=== PATIENT | female | born 1985 | race Caucasian/White ===

== ENCOUNTER → 2017-02-18 | Outpatient (CLI) | payer OTHER ==
[~2017-02-18] MED LIST: ETONMIS VAGRING; IBUP1CAP9 PO; MULT-506 PO; PERCOCET PO
== END | disposition home or self-care (01) ==
LOC: C.PAPS 15:28
PROVIDERS: ATTEND Obstetrics & Gynecology
DX: Z12.4 Encounter for screening for malignant neoplasm of cervix (principal)

== ENCOUNTER 2017-06-01 15:31 | Emergency (ER) | payer OTHER ==
[~2017-06-01] VITALS: Ht 165.1 cm; Wt 63.1 kg
[2017-06-01 15:41] VITALS: Ht 165.1 cm; Wt 63.1 kg
--- NOTE | 2017-06-01 16:50 | DIAGNOSTIC IMAGING REPORT ---
CHEST 2 VIEWS ROUTINE CLINICAL HISTORY: cough, L sided chest pain COMPARISON STUDY: Chest radiograph December 21, 2005. FINDINGS: Lung volumes are normal. No pneumothorax or pleural effusion is present. There is hazy left lower lung opacity, lateral to the left heart border. Pulmonary vascularity is normal. A round radiodensity projecting over the left lower lung is noted within adjacent linear density. IMPRESSION: Mild hazy left lower lung opacity which favors an area of pneumonia. Radiographic follow to ensure resolution is recommended. Electronically signed by: Jamal Duvall M.D. 06/01/2017 4:49 PM Dictated Date/Time: 06/01/2017 4:44 PM
[2017-06-01] MEDS ORDERED: ALBUTEROL HFA 8 GM INHALER INH STA (17:05)
[2017-06-01] MEDS ORDERED: DOXY100C PO (17:13)
[2017-06-01 17:27] VITALS: BP 108/72; PULSE 68; TEMP 37.4; O2SAT 100
--- NOTE | 2017-06-01 17:28 | EMERGENCY ROOM VISIT NOTE ---
History First contact with patient: 15:48 Chief Complaint: COUGH Stated Complaint: CHEST PAIN W/SHORTNESS OF BREATH Nursing Triage Summary: cough for the past week or so. mother of 3 children that tested positive for influenza A yesterday. productive cough green sputum. History of Present Illness The patient is a 31 year old female who presents to the Emergency Room with complaints of shortness of breath, cough and left-sided chest discomfort with deep breathing. The patient reports that she had a bronchitis back in March that was treated with a Z-Los. The patient did have almost complete resolution of her symptoms. The patient reports that she started to develop a cough last week, with mildly worsening symptoms over the weekend. She used a Vicks inhaler on Tuesday, then noticed that the reservoir had mold in it. She reports left-sided chest discomfort that is worse when laying on the left side. She has not had any fevers or chills. She reports that her 3 children also developed a cough on Tuesday, and tested positive for influenza A yesterday. The patient denies any significant cardiopulmonary history. She rates her discomfort a 3 out of 10. Review of Systems 10 system review was performed and was negative except for pertinent positives and negatives as indicated in history of present illness Past Medical/Surgical History Medical Problems: (1) History of - section Family History Cancer Diabetes mellitus Gallbladder disease Heart disease Hypertension Lung disease Social History Smoking Status: Never Smoker Drug Use: none Marital Status: Occupation Status: employed Current/Historical Medications Scheduled Doxycycline Hyclate (Vibramycin), 100 MG PO BID Etonogestrel/Ethinyl Estradiol (Nuvaring), 1 EA VAGRING MONTHLY Multivitamin (Multivitamin), 1 TAB PO QAM Scheduled PRN Ibuprofen (Ibuprofen), 1-3 TABS PO DAILY PRN for Pain Physical Exam Vital Signs Date Time Temp Pulse Resp B/P (MAP) Pulse Ox O2 Delivery O2 Flow Rate FiO2 06/01/17 15:46 100 Room Air 06/01/17 15:41 37.4 70 18 104/66 96 Room Air Physical Exam CONSTITUTIONAL: Healthy and well nourished. Alert and oriented X 3 with positive affect. Patient does not appear acutely or toxic. She also had no cough while in the emergency department. HEENT: Normocephalic, atraumatic. Pupils equal, round and reactive. Ears and nares are clear. No sclerae icterus or conjunctival injection/pallor. OROPHARYNX: No posterior pharyngeal erythema or tonsillar hypertrophy. NECK: Full active range of motion without discomfort. RESPIRATORY: Clear to auscultation bilaterally with no wheezing, crackles, rhonchi or stridor. CARDIOVASCULAR: Regular rate and rhythm with no murmurs, rubs or gallops. GASTROINTESTINAL: Bowel sounds present in all quadrants. Soft and nontender to palpation. MUSCULOSKELETAL: Full range of motion of all joints without discomfort. INTEGUMENTARY: No rash or other significant dermatologic conditions noted. NEUROLOGIC: No focal neurologic deficits noted. Medical Decision & Procedures ER Provider Diagnostic Interpretation: My interpretation of a two-view chest x-ray shows a left basilar consolidation consistent with pneumonia. Radiologist report is as follows: CHEST 2 VIEWS ROUTINE CLINICAL HISTORY: cough, L sided chest pain COMPARISON STUDY: Chest radiograph December 21, 2005. FINDINGS: Lung volumes are normal. No pneumothorax or pleural effusion is present. There is hazy left lower lung opacity, lateral to the left heart border. Pulmonary vascularity is normal. A round radiodensity projecting over the left lower lung is noted within adjacent linear density. IMPRESSION: Mild hazy left lower lung opacity which favors an area of pneumonia. Radiographic follow to ensure resolution is recommended. ED Course Patient history and physical exam were performed. Nurse's notes were reviewed. Vital signs were reviewed and were normal. O2 saturation is 96% on room air. The patient is also afebrile, and has not taken any ibuprofen or Tylenol today. She is also not tachycardic. Chest x-ray shows a left basilar consolidation consistent with pneumonia. Based on patient history and timing, I suspect that this is a bacterial pneumonia as opposed to influenza the patient was provided a prescription for doxycycline, and dispensed a Ventolin metered-dose inhaler and AeroChamber. She was encouraged to alternate ibuprofen and Tylenol as needed for the pain. She was encouraged to follow-up with her PCP in 7-10 days for recheck and repeat chest x-ray. Return to the emergency department for any progressively worsening symptoms. The patient was encouraged to exercise respiratory precautions given that her children currently have influenza. 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 The patient was happy with plan of care, voiced understanding of all discharge instructions, and denied any significant discomfort at the time of discharge. Medical Decision Medication Reconcilliation Current Medication List: was personally reviewed by me Blood Pressure Screening Patient's blood pressure: Normal blood pressure Impression Primary Impression: Left lower lobe pneumonia Departure Information Dispostion Home / Self-Care Prescriptions Doxycycline Hyclate (VIBRAMYCIN) 100 Mg Cap 100 MG PO BID for 10 Days, #20 CAP Prov: Hill Mccall PA 06/01/17 Referrals Harsh Agarwal D.O. Forms HOME CARE DOCUMENTATION FORM, IMPORTANT VISIT INFORMATION Patient Instructions Pneumonia (Bacterial) - [facility], [facility] Additional Instructions Complete all doxycycline antibiotics as prescribed. Albuterol 2 puffs every 4 hours as needed for cough. You may also use other OTC medicines for additional relief (Robitussin, Mucinex) . Ibuprofen 800 mg and/or Tylenol 1000 mg every 8 hours. You may also alternate these medications for more effective pain relief: Ibuprofen --4 HRS--> Tylenol --4 HRS--> ibuprofen --4 HRS--> Tylenol .... Follow-up with your PCP for recheck in 7-10 days, and repeat chest x-ray. Return to the emergency department for any significant worsening symptoms. Problem Qualifiers Primary Impression: Left lower lobe pneumonia Pneumonia type: due to unspecified organism Qualified Codes: J18.1 - Lobar pneumonia, unspecified organism
== END 2017-06-01 17:29 | disposition home or self-care (01) ==
LOC: C.EDB 15:32 → C.EDD 17:29
DX: J18.9 Pneumonia, unspecified organism (principal); Z79.899 Other long term (current) drug therapy; Z80.9 Family history of malignant neoplasm, unspecified; Z83.3 Family history of diabetes mellitus; Z83.79 Family history of other diseases of the digestive system; Z82.49 Family history of ischemic heart disease and other diseases of the circulatory system

== ENCOUNTER → 2017-06-15 | Outpatient (CLI) | payer OTHER ==
[~2017-06-15] MED LIST changes: -PERCOCET PO
--- NOTE | 2017-06-15 15:44 | DIAGNOSTIC IMAGING REPORT ---
CHEST 2 VIEWS ROUTINE CLINICAL HISTORY: Follow-up pneumonia. COMPARISON STUDY: Chest radiograph June 01, 2017. FINDINGS: Lung volumes are normal. No pneumothorax or pleural effusion is noted. Hazy left lower lung opacity shown on exam of June 01, 2017 has resolved. Lungs are clear. Cardiac size is normal. Mediastinal contours are normal. There is no evidence for pulmonary edema. IMPRESSION: Interval resolution of left lower lung pneumonia shown on exam of June 01, 2017. Electronically signed by: Jamal Duvall M.D. 06/15/2017 3:42 PM Dictated Date/Time: 06/15/2017 3:41 PM
== END | disposition home or self-care (01) ==
LOC: C.RAD 15:23
PROVIDERS: ATTEND Nurse Practitioner
DX: J18.9 Pneumonia, unspecified organism (principal)

== ENCOUNTER 2018-11-27 07:28 | Observation (INO) ==
--- NOTE | 2018-11-03 09:01 | Anesthesiology Consultation ---
Date of Service November 03, 2018 Assessment & Plan (1) Encounter for pre-operative examination: Check test AM DOS Chart Review Chart Review: Acceptable Risk for Surgery and Patient NOT seen in Pre Admission Testing History Surgery Operation Date: 11/27/18 07:00 Proposed Procedures p Laparoscopic Cholecystectomy, Possible Cholangiogram - Ke Zhong MD, FACS Height/Weight Height: 5 ft 5 in Weight: 58.967 kg Allergies Allergy/AdvReac Type Severity Reaction Status Date / Time No Known Allergies Allergy Verified 11/02/18 15:37 Medications Home Medications Medication Instructions Recorded Confirmed Last Taken ibuprofen 200 - 600 mg PO UD PRN 03/04/18 11/02/18 Unknown melatonin 5 mg PO HS PRN 11/02/18 11/02/18 Unknown multivitamin 1 tab PO QAM 11/02/18 11/02/18 Unknown Past Medical History Medical History Strep pharyngitis ?2014 GERD (gastroesophageal reflux disease) Migraine VISUAL Past Family History Family History Grandmother (Paternal) Family history of diabetes mellitus Other No pertinent family history Past Surgical History Surgical History History of section X 3 History of laparoscopy FOR ENDOMETRIOSIS History of tooth extraction WISDOM TEETH Nausea and vomiting after administration of anesthetic agent Social History Smoking Status: Former smoker Do You Dip or Chew Tobacco: No Smoking End Date: QUIT 20'S Hx Alcohol Use: Yes (RARELY) Alcohol type: wine alcohol intake frequency: other Hx Substance Use: No substance use type: does not use
[~2018-11-27 07:28] MED LIST changes: +DEXAMETHASONE SOD INJ 4 MG/ML VIAL ONE; -ETONMIS VAGRING; -IBUP1CAP9 PO; +LIDOCAINE HCL 2% 2 ML VIAL/AMP(20MG/ML) INFIL ONE; +LR 15ML/HR IV SCH; +MIDAZOLAM HCL 1 MG/ML 2ML VIAL ONE; -MULT-506 PO; +ONDANSETRON INJ 2 MG/ML 2 ML VIAL ONE; +PROPOFOL IV EMULSION 10 MG/ML 20 ML VIAL IV ONE; +ROCURONIUM BROMIDE 10 MG/ML 5 ML VIAL ONE; +cefUROXime 1,500 MG in DEXTROSE 5% 100 ML IV SCH; +fentaNYL citrate 100 MCG/2 ML VIAL ONE
[2018-11-27] MEDS ORDERED: PHENYLEPHRINE 100MCG/ML 5ML SYR IV PRN (07:29)
[2018-11-27] MEDS ORDERED: MEPERIDINE HCL 25 MG/ML CARP IV PRN (07:29)
[2018-11-27] MEDS ORDERED: ONDANSETRON INJ 2 MG/ML 2 ML VIAL IV PRN (07:29)
[2018-11-27] MEDS ORDERED: ATROPINE SULFATE 0.1 MG/ML 10ML SYR IV PRN (07:29)
[2018-11-27] MEDS ORDERED: ePHEDrine sulfate 50 MG/ML AMP IV PRN (07:29)
[2018-11-27] MEDS ORDERED: LABETALOL HCL IV 5 MG/ML 20ML IV PRN (07:29)
[2018-11-27] MEDS ORDERED: SCOPOLAMINE 1.5 MG TDSY ONE (08:01)
[2018-11-27] MEDS ORDERED: SCOPOLAMINE 1.5 MG TDSY TD ONE (08:05)
[2018-11-27] MEDS ORDERED: CONRAY 60% 50 ML VIAL ONE (08:11)
[2018-11-27] MEDS ORDERED: BUPIVACAINE 0.5 % 5 MG/1 ML MPF 30ML VIAL ONE (08:11)
[2018-11-27] MEDS ORDERED: ACETAMINOPHEN 1000 MG/100 ML IV IV ONE (08:16)
--- NOTE | 2018-11-27 09:17 | Fluoroscopy Report ---
[place] cholangiogram OR CLINICAL HISTORY: 33 years-old Female presenting with POSSIBLE CHOLANGIOGRAM. TECHNIQUE: Fluoroscopy was provided for an intraoperative cholangiogram. 5 fluoroscopic image(s) cleso rded. COMPARISON: HIDA scan from 04/17/2018. FINDINGS: Procedure: An intraoperative cholangiogram was performed. Cholecystectomy clips noted. A catheter was introduced into the cystic duct remnant. The cystic duct remnant was nondilated. Reflux of contrast into the pancreatic duct noted. Peritoneal spillage: Peritoneal spillage of contrast consistent with a leak, likely at the cystic jaret t injection site. Extrahepatic bile ducts: The common bile duct is normal in course and caliber. There are no filling d efects seen within the common bile duct to suggest a retained stone. Contrast extends into the small bowel. Intrahepatic bile ducts: There is no intrahepatic bile duct dilatation. Fluoroscopy dosage (mGy): 1.97. Fluoroscopy time: 19.2 seconds. Number or time of high level fluoroscopy (HLF), digital spot, or digital subtraction images: 0. IMPRESSION: The patient is status post cholecystectomy. No filling defects within the bile ducts. Electronically signed by: Mckay Banuelos M.D. 11/27/2018 9:16 AM
[2018-11-27] MEDS ORDERED: ACETAMINOPHEN 1,000 MG/100 ML VIAL IV STA (09:19)
--- NOTE | 2018-11-27 09:19 | Operative Report ---
Post Operative Report Pre & Post Diagnosis Operation Date: 11/27/18 08:30 Pre-Op Diagnosis: Biliary Colic Post-Op Diagnosis: Biliary Colic, chronic cholecystitis Procedure Operation Date: 11/27/18 08:30 Actual Procedures p Laparoscopic Cholecystectomy with Cholangiogram - Ke Zhong MD, FACS Surgeon Ke Zhong MD, FACS Customer Facilities Supervisor Caryn Espino Estimated Blood Loss 5 Findings Consistent with Post-Op Diagnosis Specimens gallbladder Description of Procedure see dictation cholangiogram- narrow CBD I attest to the content of the Intraoperative Record and any orders documented therein. Any exceptions are noted below.
[2018-11-27] MEDS ORDERED: NEOSTIGMINE METHYLSULFATE 5 MG/5 ML SYR ONE (09:34)
[2018-11-27] MEDS ORDERED: KETOROLAC 30 MG/ML VIAL ONE (09:34)
[2018-11-27] MEDS ORDERED: GLYCOPYRROLATE 0.2 MG/ML VIAL ONE (09:34)
[2018-11-27] MEDS: fentaNYL citrate 100 MCG/2 ML VIAL IV PRN ×4 (09:48→10:03)
[2018-11-27] MEDS: HYDROmorphone INJ 1 MG/ML SYRINGE IV PRN ×6 (10:06→10:31)
[2018-11-27] MEDS ORDERED: PROMETHAZINE HCL 25 MG in SODIUM CHLORIDE 0.9% 50 ML IV STA (10:13)
--- NOTE | 2018-11-27 10:49 | Anesthesiology Progress Note ---
Date of Service November 27, 2018 Anesthesia Post Procedure Vital Signs Vital Signs: Temp Pulse Pulse Resp BP Pulse Ox 11/27/18 10:35 71 16 108/79 100 11/27/18 10:25 64 15 103/68 100 11/27/18 10:15 61 16 102/69 100 11/27/18 10:05 60 16 108/71 100 11/27/18 09:55 66 16 108/72 99 11/27/18 09:45 85 16 110/73 100 11/27/18 09:37 36.4 C L 71 16 104/79 100 11/27/18 08:01 36.7 C 68 16 103/78 100 Pain Intensity Abdomen: Pain Intensity: 1 Transfer of Care Handoff Completed per policy Notes Mental Status: alert / awake / arousable Patient Amnestic to Procedure: Yes Nausea / Vomiting: adequately controlled Pain: adequately controlled Airway Patency, RR, SpO2: stable & adequate BP & HR: stable & adequate Hydration State: stable & adequate Anesthetic Complications: no major complications apparent and Pt Satisfied with anesthetic care Notes: The patient's PONV was treated with preop scopolamine patch, intraoperative Decadron and Zofran, and postoperative Phenergan.
[2018-11-27] MEDS ORDERED: ACETAMINOPHEN 325 MG TAB PO PRN (11:15)
[2018-11-27] MEDS ORDERED: HYDROCODONE/ACETAMOPHEN 5/325MG TAB PO PRN (11:15)
[2018-11-27] MEDS ORDERED: IBUPROFEN 600 MG TAB PO PRN (11:15)
[2018-11-27] MEDS ORDERED: PROMETHAZINE HCL 12.5 MG in SODIUM CHLORIDE 0.9% 50 ML IV PRN (11:15)
[2018-11-27] MEDS ORDERED: PROMETHAZINE HCL 25 MG in SODIUM CHLORIDE 0.9% 50 ML IV PRN (11:15)
[2018-11-27] MEDS ORDERED: HYDROmorphone INJ 1 MG/ML SYRINGE IV PRN (11:15)
[2018-11-27] MEDS ORDERED: HYDROmorphone INJ 0.5 MG/0.5 ML SYR IV PRN (11:15)
--- NOTE | 2018-11-27 13:02 | Operative Report ---
DATE OF OPERATION: 11/27/2018 NAME OF OPERATION: Laparoscopic cholecystectomy with intraoperative cholangiogram. PREOPERATIVE DIAGNOSIS: Biliary colic. POSTOPERATIVE DIAGNOSIS: Biliary colic with chronic cholecystitis. STAFF SURGEON: Ke Zhong MD CYBER ANALYST: Ryland Espino PA-C ANESTHESIA: General. DESCRIPTION OF PROCEDURE: The patient was brought in the operating room and placed on the operating table in supine position. Her abdomen was prepped and draped in usual fashion. Pneumatic stockings, orogastric tube were placed. Skin and subcutaneous tissue were anesthetized at all incisions using 0.5% plain Marcaine. Incision was made just above the umbilicus, carrying dissection down identifying the fascia, placing a Veress needle producing pneumoperitoneum. Under visualization after an 11 mm port placed, three 5 mm ports were placed, 1 cephalad and 2 laterally. Gallbladder was grasped and retracted. It was distended. Dissection was carried out at the deandre hepatis. There was some scar tissue indicating chronic inflammation. Cystic duct was identified, it was very small and sclerotic. It was clipped and then cholangiogram performed showing a very narrow common bile duct, but patent with good flow into the duodenum. The cystic duct was clipped and transected. The cystic artery identified, clipped and transected and the gallbladder dissected away from the liver bed in the usual fashion. There was scar tissue in the posterior wall. Gallbladder was placed in an Endobag. After appropriate hemostasis and irrigation, the Endobag was removed from the umbilical site. The umbilical fascia closed using 0 Vicryl suture. Skin reapproximated using subcuticular 4-0 Monocryl with Dermabond. The patient was transferred to recovery room in stable condition. My apartment assistant manager helped with prepping, draping, removal of the gallbladder and closure of the wounds. I attest to the content of the Intraoperative Record and any orders documented therein. Any exception s are noted below.
[2018-11-27] MEDS: LACTATED RINGER'S 1,000 ML IV SCH ×2 (14:04→23:15)
[2018-11-27] MEDS: ONDANSETRON INJ 2 MG/ML 2 ML VIAL IV PRN ×2 (14:05→17:41)
[2018-11-27] MEDS: CHECK SCOPOLAMINE PATCH PLACEMENT SCH (15:23)
[2018-11-27] MEDS: HYDROCODONE/ACETAMOPHEN 5/325MG TAB PO PRN (17:45)
[2018-11-28] MEDS: CHECK SCOPOLAMINE PATCH PLACEMENT SCH (00:43)
--- NOTE | 2018-11-28 07:56 | Anesthesiology Progress Note ---
Date of Service November 28, 2018 Anesthesia Post Procedure Vital Signs Vital Signs: Temp Pulse Pulse Resp BP BP Pulse Ox 11/28/18 06:51 36.7 C 70 67 12 110/70 101/61 98 11/28/18 03:06 36.7 C 67 12 101/61 98 11/27/18 23:33 36.7 C 84 14 109/70 98 11/27/18 18:54 36.8 C 81 16 111/68 99 11/27/18 16:43 36.8 C 84 14 103/65 98 11/27/18 14:20 36.9 C 102 H 14 110/70 99 11/27/18 13:38 36.4 C L 102 H 14 104/65 99 11/27/18 12:18 36.7 C 102 H 12 101/67 98 11/27/18 11:25 36.5 C 83 16 105/67 100 11/27/18 11:00 36.5 C 78 16 100/63 99 11/27/18 10:45 36.4 C L 70 14 99/56 L 95 11/27/18 10:35 71 16 108/79 100 11/27/18 10:25 64 15 103/68 100 11/27/18 10:15 61 16 102/69 100 11/27/18 10:05 60 16 108/71 100 11/27/18 09:55 66 16 108/72 99 11/27/18 09:45 85 16 110/73 100 11/27/18 09:37 36.4 C L 71 16 104/79 100 11/27/18 08:01 36.7 C 68 16 103/78 100 Pain Intensity Abdomen: Pain Intensity: 1 Notes Mental Status: alert / awake / arousable and participated in evaluation Patient Amnestic to Procedure: Yes Pain: adequately controlled Airway Patency, RR, SpO2: stable & adequate BP & HR: stable & adequate Hydration State: stable & adequate Anesthetic Complications: no major complications apparent and Pt Satisfied with anesthetic care Notes: pt had nausea that required doses of Zofran and Phenergan, after a scopolamine patch and intra-op antiemetics. N&V resolving only this am
[2018-11-28 08:10] VITALS: BP 97/58; PULSE 59; TEMP 98.4; O2SAT 99
[2018-11-28] MEDS: HYDROCODONE/ACETAMOPHEN 5/325MG TAB PO PRN ×2 (09:24→14:43)
--- NOTE | 2018-11-28 11:08 | Discharge Summary ---
PRINCIPAL DIAGNOSIS: Chronic cholecystitis. PROCEDURES: The patient underwent laparoscopic cholecystectomy with cholangiogram. HISTORY OF PRESENT ILLNESS: The patient is a 33-year-old female who has been having intermittent abdominal pain felt to be biliary colic. Brought into the hospital on 11/27/2018 where she underwent laparoscopic cholecystectomy with intraoperative cholangiogram. The cholangiogram was essentially normal. She did have a very narrow common bile duct and a very small sclerotic cystic duct with some scar tissue consistent with chronic cholecystitis. She has done relatively well and does want to go home. She looks good this morning. We will see her in the surgical clinic within 1-2 weeks.
[2018-11-28] MEDS: ONDANSETRON INJ 2 MG/ML 2 ML VIAL IV PRN (14:44)
== END 2018-11-28 15:25 | disposition home or self-care (01) ==
LOC: 3W 07:28 → ASU 07:28

== ENCOUNTER 2021-01-16 05:43 | Inpatient (IN) ==
--- NOTE | 2021-01-08 11:28 | History and Physical Report ---
CHIEF COMPLAINT: Intrauterine , repeat section. HISTORY OF PRESENT ILLNESS: The patient is a 35-year-old 4, para 3. She has had three previ ous sections. This is well dated with a first trimester ultrasound. Her due date is 01/23/2021. She has had no problems. She is presently being scheduled for repeat evette ollie section. Her history is as follows, her first delivery was in 2008, it was a boy, 7 atif nds 8 ounces, premature rupture of membranes, failed induction of labor, it was complicated by anemia and she had to have transfusions. At one point, her hemoglobin was down to 5. Second de livery was in 2010, another boy, 7 pounds, 10 ounces, 39 weeks' gestation, repeat section. Third delivery was in 2013, boy, 7 pounds 14 ounces, 38 and 1/2 weeks' gestation, repeat sec tion, and the patient went into labor. Presently, the patient is being scheduled for repeat low segm ent section. She has 3 boys in good health. ALLERGIES: She has no known drug allergies. PAST SURGICAL HISTORY: She has had three C-sections. She says a diagnostic laparoscopic evaluation, which showed endometriosis. She had wisdom teeth removed. She had gallbladder taken out. PAST MEDICAL HISTORY: No history of rheumatic fever, heart disease, heart murmur, diabetes, tubercul osis. REVIEW OF SYSTEMS: No symptoms of frequent ear infections or significant medical problems. PHYSICAL EXAMINATION: GENERAL: Well-developed, well-nourished, 35-year-old white female, alert, oriented x 3, and cooperat talia, in no acute distress, appeared her stated age. HEENT: Eyes, conjunctivae are pink. Sclerae white, no evidence of jaundice. Ears had normal light reflex bilaterally. Nose had normal mucosa. Septum is midline. There were no polyps. Throat had n o erythema or evidence of infection. Teeth are in good state of repair. Head was normocephalic, nor mal distribution of hair. NECK: Supple. Trachea midline. Thyroid is not enlarged. There is no adenopathy appreciated. Both carotids are of good intensity. CHEST: Clear to auscultation and percussion. No wheezes, rales, or rhonchi appreciated. CARDIAC: Heart had a regular rhythm. S1 and S2 are normal. BREAST: Exam was normal. ABDOMEN: Revealed a term-sized fetus. There was a well-healed Pfannenstiel scar tattoo, left lower quadrant. PELVIC: Exam revealed vertex presentation, about a 0 station. Cervix was posterior and closed. MUSCULOSKELETAL: Examination revealed no calf tenderness. IMPRESSION OF THIS CASE: Three previous sections, intrauterine at term. PLAN: For repeat section, status post diagnostic laparoscopy revealing endometriosis, statu s post cholecystectomy, status post wisdom teeth removal. Job ID: [id number]
--- NOTE | 2021-01-08 12:36 | PAT Medication Instructions ---
Medication Instructions Date of Service January 08, 2021 Home Medications vits no.130-ferrous fum 27 mg iron-folic acid 800 mcg tablet ( Vitamin) 1 tab PO DAILY calcium carbonate 500 mg calcium (1,250 mg) chewable tablet 2,500 mg PO BID PRN DO NOT take the morning of surgery vits no.130-ferrous fum 27 mg iron-folic acid 800 mcg tablet ( Vitamin) 1 tab PO DAILY calcium carbonate 500 mg calcium (1,250 mg) chewable tablet 2,500 mg PO BID PRN Other Notes If you have any questions please call us at [phone] or [phone] or [phone] or [phone]
--- NOTE | 2021-01-12 09:22 | Anesthesiology Consultation ---
Date of Service January 12, 2021 Assessment & Plan (1) Encounter for pre-operative examination: - Patient was scheduled for PAT visit 01/12/21 but missed appt due to significant headache at time of visit. Due to work schedule, unable to schedule in person PAT visit at this time, therefore I called patient 01/12 to discuss PMHX/PSHX and anesthesia questions via phone. Patient reports good pain control with prior c- sections (done via spinals and epidurals) but did report that toward the end of previous c/s, she felt chest heaviness. She also reports that she has thrown up when being laid back at the initiation of prior surgeries as well as PONV. - COVID screening: Per assessment on 01/12: Travel screen negative, no known COVID-19 positive contacts or current COVID-19 related symptoms. Surgeon arranging preop COVID testing (either 01/13 or 01/14 at [facility]). Awaiting results. Chart Review Chart Review: Acceptable Risk for Surgery (pending preop labs) and Patient NOT seen in Pre Admission Testing History Surgery Operation Date: 01/16/21 07:30 Proposed Procedures p Section in LD - Jl Berger MD Height/Weight Height: 5 ft 5 in Weight: 81.647 kg Allergies Allergy/AdvReac Type Severity Reaction Status Date / Time No Known Allergies Allergy Verified 01/05/21 09:41 Medications Home Medications Medication Instructions Recorded Confirmed Last Taken vits no.130-ferrous fum 1 tab PO DAILY 01/03/21 01/05/21 01/02/21 27 mg iron-folic acid 800 mcg tablet ( Vitamin) calcium carbonate 500 mg calcium 2,500 mg PO BID PRN 01/05/21 01/05/21 Unknown (1,250 mg) chewable tablet Past Medical History Medical History GERD (gastroesophageal reflux disease) Migraine Ocular Exercise / Class Metabolic Activity III < 4 Walking/Shop/Light housework (one FS (no CP, + SOB)) Past Family History Family History Grandmother (Paternal) Family history of diabetes mellitus Grandmother (Maternal) Myocardial infarction Pancreatic cancer Other No pertinent family history Denies family history of Colon cancer Ovarian cancer Prostate cancer Breast cancer Past Surgical History Surgical History History of section x3 History of cholecystectomy Laparoscopic cholecystectomy (11/27/18): Grade view 1, MAC#3, ETT 7.0 at [facility] (scope patch used) History of laparoscopy r/t endometriosis History of tooth extraction WTE Past Anesthesia History No Hx of Anesthesia Complications (except PONV) and No Family Hx of Anesthesia Complications History of PONV History of PONV (scope patch used with 11/2018 tiana) Social History Smoking Status: Never smoker Do You Dip or Chew Tobacco: No Hx Alcohol Use: No (RARELY) Alcohol type: wine alcohol intake frequency: other Hx Substance Use: No substance use type: does not use Review of Systems Patient denies chest pain, shortness of breath, fever, chills, cough, wheezing, palpitations.
[2021-01-16] MEDS ORDERED: CITRIC ACID/SODIUM CITRATE 15 ML UDC PO SCH (06:00)
[2021-01-16] MEDS ORDERED: cefOXitin 2,000 MG in DEXTROSE 5% 50 ML IV SCH (06:00)
[2021-01-16] MEDS ORDERED: LACTATED RINGER'S 1,000 ML IV SCH ×2 (06:00→09:45)
[2021-01-16 06:25] LABS: INR 0.9 (0.9-1.1); Partial Thromboplastin Time 25.3 Seconds (21.0-31.0); Prothrombin Time 9.5 Seconds (9.0-12.0)
[2021-01-16 06:47] LABS: Calcium 9.2 mg/dl (8.5-10.1); Creatinine Clr Calc Pharmacy 132.6 ml/min; Est GFR (African American) 136.6 ml/min; Est GFR (Non-African American) 117.9 ml/min; Potassium 3.6 mmol/L (3.5-5.1)
[2021-01-16] MEDS ORDERED: fentaNYL citrate 100 MCG/2 ML VIAL ONE (06:52)
[2021-01-16] MEDS ORDERED: MoRPHine SULFATE PF 1 MG/ML 10 ML AMP/VIAL ONE (06:52)
[2021-01-16] MEDS ORDERED: LIDOCAINE/EPINEPHRINE 1% 20 ML VIAL ONE (06:56)
[2021-01-16 07:50] LABS: Basophils # (auto) 0.02 K/uL (0-0.2); Basophils % (auto) 0.2 %; Eosinophils # (auto) 0.09 K/uL (0-0.5); Eosinophils % (auto) 1.1 %; Hematocrit (blood only) 37.1 % (37-47); Hemoglobin 12.5 g/dL (12.0-16.0); Immature Granulocytes # (auto) 0.15 K/uL (0.00-0.02); Immature Granulocytes % (auto) 1.8 %; Lymphocytes # (auto) 2.02 K/uL (1.2-3.4); Lymphocytes % (auto) 23.8 %; Mean Corpuscular Hemoglobin 30.8 pg (25-34); Mean Corpuscular Volume 91.4 fL (80-100); Mean Platelet Volume 11.9 fL (7.4-10.4); Monocytes # (auto) 0.73 K/uL (0.11-0.59); Monocytes % (auto) 8.6 %; Neutrophils # (auto) 5.48 K/uL (1.4-6.5); Neutrophils % (auto) 64.5 %; Platelet Count 196 K/uL (130-400); RDW Coefficient of Variation 14.4 % (11.5-14.5); RDW Standard Deviation 47.3 fL (36.4-46.3); Red Blood Count 4.06 M/uL (4.2-5.4); White Blood Count 8.49 K/uL (4.8-10.8)
[2021-01-16 07:51] LABS: Mean Corpuscular Hgb Conc 33.7 g/dL (32-36)
[2021-01-16] MEDS ORDERED: ePHEDrine sulfate 50 MG/ML AMP IV PRN (08:03)
[2021-01-16] MEDS ORDERED: OXYTOCIN 10 UNITS/ML VIAL ONE (08:03)
[2021-01-16] MEDS ORDERED: LACTATED RINGER'S 500 ML IV PRN (08:03)
[2021-01-16] MEDS ORDERED: NALBUPHINE HCL INJ 10 MG/ML AMP IV PRN (08:03)
[2021-01-16] MEDS ORDERED: NALOXONE HCL 0.4 MG/1 ML VIAL/CARP IV PRN (08:03)
[2021-01-16] MEDS ORDERED: NALOXONE HCL 0.08 MG in SYRINGE 1.8 ML IV PRN (08:03)
[2021-01-16] MEDS ORDERED: NALOXONE HCL 1 MG in SODIUM CHLORIDE 0.9% 1000ML 1,000 ML IV PRN (08:03)
[2021-01-16] MEDS ORDERED: MoRPHine SULFATE PF 1 MG/ML 10 ML AMP/VIAL INT SPINAL ONE (08:03)
[2021-01-16] MEDS ORDERED: MoRPHine SULFATE 2 MG/ML CARP IV PRN (08:03)
[2021-01-16] MEDS ORDERED: PHENYLEPHRINE 100MCG/ML 5ML SYR ONE (08:03)
[2021-01-16] MEDS ORDERED: ONDANSETRON INJ 2 MG/ML 2 ML VIAL IV PRN (08:03)
[2021-01-16] MEDS ORDERED: diphenhydrAMINE 50 MG/ML VIAL IV PRN (08:03)
[2021-01-16] MEDS ORDERED: NO NARCOTICS OR SEDATIVES SCH (08:15)
[2021-01-16] MEDS ORDERED: DC INTRASPINAL MORPHINE SCH (08:15)
[2021-01-16] MEDS ORDERED: SODIUM CHLORIDE 0.9% 1000ML 1,000 ML IV SCH (08:15)
[2021-01-16] MEDS ORDERED: ONDANSETRON INJ 2 MG/ML 2 ML VIAL ONE (08:30)
[2021-01-16] MEDS ORDERED: SENNA 8.6 MG TAB PO PRN (09:24)
[2021-01-16] MEDS ORDERED: HYDROCORTISONE ACETATE 25 MG SUPP PR PRN (09:24)
[2021-01-16] MEDS ORDERED: DIPHTHERIA/TETANUS/PERTUSSIS 0.5 ML SYR/VIAL IM ONE (09:24)
[2021-01-16] MEDS ORDERED: MAGNESIUM HYDROXIDE SUSP 30 ML UDC PO PRN (09:24)
[2021-01-16] MEDS ORDERED: BENZOCAINE 20% AER SPR 82.5 GM CAN EXT PRN (09:24)
[2021-01-16] MEDS ORDERED: SUPERCREAM 0.870% 15 GM JAR EXT PRN (09:24)
--- NOTE | 2021-01-16 09:24 | Post Operative Brief Note ---
Immediate Post Op Note v1 Date of Surgery January 16, 2021 Pre & Post Diagnosis Operation Date: 01/16/21 07:30 Pre-Op Diagnosis: Term Previous ;Desires Sterilization Post-Op Diagnosis: Same; Delivery of a live female child at 0817( Main OR 3) I identified the patient and participated in the time-out.: Yes Procedure Operation Date: 01/16/21 07:30 Actual Procedures p Section in LD - Jl Berger MD tubal ligation Surgeon Jl Berger MD Legal Aide nurse daycare assistant Estimated Blood Loss 600 Findings Consistent with Post-Op Diagnosis normal tubes and ovaries Specimens placenta portion fallopian tubes both sides Drains Chapman Catheter Anesthesia Type Spinal Complications none Disposition Disposition: Recovery Room
--- NOTE | 2021-01-16 09:35 | Anesthesiology Progress Note ---
Date of Service January 16, 2021 Anesthesia Post Procedure Vital Signs Vital Signs: Temp Pulse Resp BP Pulse Ox 01/16/21 09:34 89 94 01/16/21 09:31 80 97 01/16/21 09:29 86 112/56 L 01/16/21 07:15 18 01/16/21 05:56 36.5 C 102 H 18 111/66 01/16/21 05:51 36.5 C 102 H 18 111 Transfer of Care Handoff Completed per policy Notes Mental Status: alert / awake / arousable and participated in evaluation Patient Amnestic to Procedure: No Nausea / Vomiting: adequately controlled Pain: adequately controlled Airway Patency, RR, SpO2: stable & adequate BP & HR: stable & adequate Hydration State: stable & adequate Neuraxial Anesthesia: was administered and sensory block is resolving Anesthetic Complications: no major complications apparent and Pt Satisfied with anesthetic care
[2021-01-16] MEDS: KETOROLAC 30 MG/ML VIAL IV PRN ×3 (09:46→23:27)
--- NOTE | 2021-01-16 11:00 | Operative Report (OR) ---
DATE OF PROCEDURE: 01/16/2021 PROCEDURE: Repeat low segment section, bilateral tubal ligation. INDICATIONS FOR SURGERY: Three previous sections, intrauterine at 39 weeks' gestat ion, desires for permanent sterilization. PREOPERATIVE DIAGNOSES: A 39-week gestation, repeat section, desires for tubal ligation. POSTOPERATIVE DIAGNOSES: A 39-week gestation, repeat section, desired for tubal ligation, d elivered live . SURGEON: Jose Antonio Berger MD. ESTIMATED BLOOD LOSS: 500 mL. ANESTHESIA: Spinal. OPERATIVE FINDINGS AND PROCEDURE: The patient was brought to the OR table, correctly identified by a rmband and conversation. Spinal anesthesia was administered. Chapman catheter was inserted asepticall y in the bladder, connected to gravity drainage. Compression stockings were applied to the legs, the n the lower abdomen was painted with an alcohol-based sterilizing solution. We waited 3 minutes for it to dry, then we draped in the usual sterile fashion. Level of the anesthesia was then checked and found to be adequate. A Pfannenstiel incision was made through a previous scar. This was carried down to the anterior fasc ia by sharp dissection. The fascia was incised transversely. Then, the fascia was dissected off the recti muscles up towards the umbilicus and down to the pelvic brim. The recti muscles were then cut in the midline and the peritoneum carefully raised and entered. An abdominal retractor was placed i nto the abdomen to expose the lower uterine segment. An incision was made above the vesicouterine fol d. The bladder was advanced out of the operative field. Lower uterine segment was scored with a kni fe and entered bluntly. Clear amniotic fluid was seen. Vectis retractor was applied to the 's head. With fundal pressure, a live was delivered. We stripped the cord blood and then clamp ed and cut the cord. The infant was attended to by the bisque kiln placer who was scrubbed and present at the time of delivery. Following this, cord blood was taken. The placenta was removed manually. Uterus, tubes, and ovaries were brought out through the incision. Uterine cavity was cleansed with a clean sponge. 10 units of Pitocin was injected right into the myometrium. The myometrial defect wa s identified. We did a deep approximation of a heavy duty chromic, which approximated the muscular l saloni and then we did another layer of horizontally placed Vicryl suture, which approximated the fasci al layer. Then, I did like 2 interrupted sutures of Vicryl to complete the approximation and hemosta sis. Hemostasis at this time was checked for and found to be excellent. We then turned our attentio n to doing a bilateral tubal ligation. Each tube was grasped in the mid portion, was ligated proximally and distally with a plain tie. The broad ligament was injected with lidocaine with epinephrine. 2 leaves of the broad ligament were then , and the tube was dissected out between the 2 dissected leaves of the broad ligament, it w as cut and sent for pathological evaluation. Then, the broad ligament was approximated front to back , burying the proximal stump of the tubes and exteriorizing the distal. Following this, hemostasis w as good. Pelvis was cleansed of all blood clots and debris. Uterus, tubes, and ovaries were reinser tamra into the abdomen. The retractor was removed. We checked the uterine approximation to make sure there was no bleeding. There was not. We then did a careful anatomical approximation of the anterior abdominal wall. The peritoneum was cl osed with a continuous chromic gut suture. Recti muscles were approximated with interrupted figure-o f-eight suture of chromic catgut. Fascia was closed with continuous interlocking suture of Vicryl on each side and tied in the midline. Subcutaneous was approximated with continuous plain. The skin e dges were approximated with staple clips. Job ID: [id number]
[2021-01-16] MEDS ORDERED: HYDROmorphone INJ 0.5 MG/0.5 ML SYR IV STA (11:36)
[2021-01-16] MEDS: OXYTOCIN 20 UNITS in LACTATED RINGER'S 1,000 ML IV SCH ×2 (12:03→21:02)
[2021-01-16] MEDS: SIMETHICONE 80 MG CHEW PO SCH ×3 (14:23→21:01)
[2021-01-16] MEDS: DOCUSATE SODIUM 100 MG CAP PO SCH (21:02)
[2021-01-17] MEDS ORDERED: ZOLPIDEM TARTRATE 5 MG TAB PO PRN (02:04)
[2021-01-17] MEDS ORDERED: ONDANSETRON INJ 2 MG/ML 2 ML VIAL IV PRN (02:04)
[2021-01-17] MEDS ORDERED: MEPERIDINE HCL 50 MG/ML CARP IV PRN (02:04)
[2021-01-17] MEDS ORDERED: PROMETHAZINE HCL 25 MG in SODIUM CHLORIDE 0.9% 50 ML IV PRN (02:04)
[2021-01-17] MEDS ORDERED: KETOROLAC 30 MG/ML VIAL IV PRN (02:04)
[2021-01-17] MEDS ORDERED: diphenhydrAMINE 50 MG/ML VIAL IV PRN (02:04)
[2021-01-17] MEDS ORDERED: diphenhydrAMINE Capsule 25 MG CAP PO PRN (02:04)
[2021-01-17] MEDS: oxyCODONE/ACETAMINOPHEN 5mg/325mg TAB PO PRN ×5 (02:44→20:41)
[2021-01-17] MEDS: IBUPROFEN 600 MG TAB PO PRN ×5 (02:44→20:41)
[2021-01-17 06:23] LABS: Basophils # (auto) 0.01 K/uL (0-0.2); Basophils % (auto) 0.1 %; Eosinophils # (auto) 0.09 K/uL (0-0.5); Eosinophils % (auto) 0.9 %; Hematocrit (blood only) 35.3 % (37-47); Hemoglobin 11.8 g/dL (12.0-16.0); Immature Granulocytes # (auto) 0.06 K/uL (0.00-0.02); Immature Granulocytes % (auto) 0.6 %; Lymphocytes # (auto) 1.14 K/uL (1.2-3.4); Lymphocytes % (auto) 11.8 %; Mean Corpuscular Hemoglobin 30.9 pg (25-34); Mean Corpuscular Hgb Conc 33.4 g/dL (32-36); Mean Corpuscular Volume 92.4 fL (80-100); Mean Platelet Volume 11.6 fL (7.4-10.4); Monocytes # (auto) 0.63 K/uL (0.11-0.59); Monocytes % (auto) 6.5 %; Neutrophils # (auto) 7.71 K/uL (1.4-6.5); Neutrophils % (auto) 80.1 %; Platelet Count 160 K/uL (130-400); RDW Coefficient of Variation 14.4 % (11.5-14.5); RDW Standard Deviation 48.6 fL (36.4-46.3); Red Blood Count 3.82 M/uL (4.2-5.4); White Blood Count 9.64 K/uL (4.8-10.8)
[2021-01-17] MEDS: SIMETHICONE 80 MG CHEW PO SCH ×4 (08:10→20:42)
[2021-01-17] MEDS: PRENATAL VITAMIN 1 TAB PO SCH (08:11)
[2021-01-17] MEDS: FERROUS SULFATE 325 MG TAB PO SCH (08:11)
[2021-01-17] MEDS: DOCUSATE SODIUM 100 MG CAP PO SCH ×2 (08:11→20:41)
--- NOTE | 2021-01-17 09:22 | Obstetrical Progress Note ---
Date of Service January 17, 2021 Assessment & Plan Admission and Anticipated Discharge Date Admission Date: January 16, 2021 Subjective abdomen soft and non tender bowel sounds present passing flatus bandage removed incision is clean and dry no calf tenderness vaginal bleeding scant hgb 11.8 Results & Data ([facility]) Vital Signs (Past 12 Hours) Vital Signs Temp Pulse Resp BP Pulse Ox 01/17/21 07:55 36.8 C 85 20 98/54 L 97 01/17/21 03:00 36.8 C 80 17 95/58 L 95 01/17/21 01:20 16 98 01/17/21 00:20 16 98 01/16/21 23:20 36.9 C 80 17 96/58 L 97 01/16/21 22:37 18 96 01/16/21 21:30 18 98
[2021-01-17] MEDS ORDERED: bisacodyL 5 MG TABEC PO SCH (20:00)
[2021-01-17 21:08] VITALS: O2SAT 97
[2021-01-18] MEDS: oxyCODONE/ACETAMINOPHEN 5mg/325mg TAB PO PRN ×4 (01:15→13:06)
[2021-01-18] MEDS: IBUPROFEN 600 MG TAB PO PRN ×4 (01:15→13:06)
[2021-01-18 06:36] LABS: Hematocrit (blood only) 34.9 % (37-47); Hemoglobin 11.2 g/dL (12.0-16.0)
[2021-01-18] MEDS: FERROUS SULFATE 325 MG TAB PO SCH (08:25)
[2021-01-18] MEDS: DOCUSATE SODIUM 100 MG CAP PO SCH (08:25)
[2021-01-18] MEDS: SIMETHICONE 80 MG CHEW PO SCH ×2 (08:25→13:37)
[2021-01-18] MEDS: PRENATAL VITAMIN 1 TAB PO SCH (08:26)
--- NOTE | 2021-01-18 08:55 | Obstetrical Progress Note ---
Date of Service January 18, 2021 Assessment & Plan Admission and Anticipated Discharge Date Admission Date: January 16, 2021 Subjective abdomen soft and non tender passing gas incision is clean and dry no calf tenderness ambulating well vaginal bleeding scant hgb 11.2 Results & Data ([facility]) Vital Signs (Past 12 Hours) Vital Signs Temp Pulse Resp BP Pulse Ox 01/17/21 23:15 36.7 C 87 16 127/72 97
[2021-01-18] MEDS ORDERED: bisacodyL 10 MG SUPP PR PRN (09:24)
--- NOTE | 2021-01-18 09:36 | Discharge Summary (DS) ---
HOSPITAL COURSE: The patient was admitted at 39 weeks' gestation for repeat section. She h ad 3 previous prior C-sections. The day of admission, she was given prophylactic antibiotics and take n to the OR where she underwent repeat section along with a bilateral tubal ligation without difficulty. There were no complications. Blood loss was average to less than average. Her preoper ative hemoglobin was 12.5. Postoperative hemoglobin was 11.2. POSTOPERATIVE COURSE: She did very well. Her bowel sounds returned in under 24 hours; by the second day, she was ambulating well, eating well, tolerating regular diet, passing gas and her pain was wel l controlled with a combination of Percocet and Motrin. She requested discharge and she was discharg ed to be followed in home and office and told to come back in a week for removal of ashley. Job ID: [id number]
[2021-01-18 13:20] VITALS: BP 112/72; PULSE 91; TEMP 98.2
== END 2021-01-18 15:55 | disposition home or self-care (01) | DRG 785 ==
LOC: 4S1 05:43 → EDSTATUS 07:30 → 4S2 12:16
DX: Z30.2 Encounter for sterilization; O34.211 Maternal care for low transverse scar from previous cesarean delivery; N80.9 Endometriosis, unspecified; Z3A.39 39 weeks gestation of pregnancy; Z79.899 Other long term (current) drug therapy; Z37.0 Single live birth; O26.893 Other specified pregnancy related conditions, third trimester

== ENCOUNTER 2024-09-07 11:38 | Inpatient (IN) ==
[2024-09-07 12:58] LABS: Basophils # (auto) 0.05 K/uL (0.00-0.20); Basophils % (auto) 0.4 %; Eosinophils # (auto) 0.03 K/uL (0.00-0.50); Eosinophils % (auto) 0.2 %; Hematocrit (blood only) 43.3 % (37.0-47.0); Hemoglobin 15.3 g/dl (12.0-16.0); Immature Granulocytes # (auto) 0.05 K/uL (0.01-0.20); Immature Granulocytes % (auto) 0.4 %; Lymphocytes # (auto) 2.25 K/uL (1.20-3.40); Lymphocytes % (auto) 18.4 %; Mean Corpuscular Hemoglobin 30.7 pg (25.0-34.0); Mean Corpuscular Hgb Conc 35.3 g/dL (32.0-36.0); Mean Corpuscular Volume 86.9 fL (80.0-100.0); Mean Platelet Volume 10.9 fL (9.4-12.4); Monocytes # (auto) 0.68 K/uL (0.11-0.59); Monocytes % (auto) 5.6 %; Neutrophils # (auto) 9.17 K/uL (1.40-6.50); Platelet Count 284 K/uL (130-400); RDW Coefficient of Variation 11.8 % (11.5-14.5); RDW Standard Deviation 37.7 fL (36.4-46.3); Red Blood Count 4.98 M/uL (4.20-5.40); White Blood Count 12.23 K/ul (4.8-10.8)
[2024-09-07 13:05] LABS: Appearance Urine Clear (Clear); Bilirubin Urine Negative (Negative); Blood Urine Negative (Negative); Color Urine Yellow; Glucose Urine UA Negative (Negative); Ketones Urine Negative (Negative); Leukocyte Esterase Urine Negative (Negative); Nitrite Urine Negative (Negative); Protein Urine Negative (Negative); Specific Gravity Urine 1.002 (1.000-1.030); Urobilinogen Urine Negative (Negative)
[2024-09-07 13:21] LABS: D Dimer 220 ug/L FEU (0-500); Partial Thromboplastin Time 28 Seconds (21-31); Prothrombin Time 10.6 Seconds (9.0-12.0)
[2024-09-07 13:24] LABS: Alanine Aminotransferase 12 U/L (7-52); Albumin Globulin Ratio 1.8 (0.9-2); Albumin Level 4.9 gm/dl (3.4-5.0); Alkaline Phosphatase 58 U/L (34-104); Anion Gap 7 (3-11); Aspartate Aminotransferase 16 U/L (13-39); BUN Creatinine Ratio 15.5 (10-20); Bilirubin,Total 0.7 mg/dl (0.2-1.0); Blood Urea Nitrogen 13 mg/dl (6-23); Calcium 9.7 mg/dl (8.6-10.3); Carbon Dioxide 25 mmol/L (21-32); Chloride 106 mmol/L (98-107); Creatinine Clr Calc Pharmacy 90.4 ml/min; Globulin 2.8 gm/dl (2.5-4.0); Glucose 96 mg/dl (70-99(Fasting)); Potassium 3.7 mmol/L (3.5-5.1); Sodium 138 mmol/L (136-145); Total Protein 7.7 gm/dl (6.0-8.3)
[2024-09-07 13:30] LABS: Troponin I High Sensitivity 6.3 pg/ml (0-14)
[2024-09-07] MEDS: SODIUM CHLORIDE 0.9% 1,000 ML IV ONE (13:37)
--- NOTE | 2024-09-07 13:41 | XRay Report ---
XR chest 1V not portable CLINICAL HISTORY: Chest pain, nonspecific COMPARISON STUDY: 03/13/2023 FINDINGS: Heart size and pulmonary vasculature are normal. No effusion, consolidation, or pneumothora x. IMPRESSION: No acute findings. ACT 112: Negative or not required by law. Electronically signed by: Bennie Ervin M.D. 09/07/2024 1:40 PM
[2024-09-07] MEDS: LORazepam 2 MG/1 ML VIAL IV STA (14:05)
--- NOTE | 2024-09-07 14:16 | Emergency Department Note ---
Impression & Plan Sinus tachycardia ED Provider Note HISTORY OF PRESENT ILLNESS: Patient is a 39-year-old female presenting with palpitations and tachycardia. Patient reports that intermittently over the last 3 weeks, she has been having episodes that when she eats something, she feels very flushed and lightheaded, her hands go numb and her heart rate goes up. She reports that she had a fasting glucose level in the 70s on Tuesday and after taking 70 g of glucose her sugar only went up to the 80s. She states that today after eating breakfast at around 10 AM, her heart rate seemed to become elevated and she felt like she felt her heart skipping beats. She does complain of some substernal chest pressure. She denies any recent changes in medications. Denies any recent fevers, chills, abdominal pain, nausea or vomiting. She reports feeling lightheaded with her elevated heart rate. On arrival to the ER, the patient had protocol orders performed and had a heart rate in the 130s. However, while out in the waiting room she was complaining of having more sensations of feeling faint like she was going to pass out, and her repeat heart rate was in the 150s. She was brought back to an examination bay. ROS: as above PHYSICAL EXAM: Constitutional: Patient appears in no acute distress. HENT: Head: Normocephalic and atraumatic. Eyes: EOMI, PERRL Mouth/Throat: Mucous membranes moist. Neck: Trachea midline. Neck supple. Cardiovascular: Tachycardic with regular rhythm. No murmurs, rubs or gallops. Intact distal pulses. Pulmonary/Chest: No respiratory distress. Breath sounds clear and equal bilaterally. No wheezes or rales. Abdominal: Abdomen soft, no tenderness, rebound or guarding. Musculoskeletal: No edema, tenderness or deformity noted. Skin: Warm and dry. No rash, erythema, pallor or cyanosis Psychiatric: Appropriate mood and affect for situation. Neurological: Alert and keenly responsive. CN II-XII grossly intact, moving all extremities equally and fully. MDM: - Vitals signs showed hypertension and tachycardia - History obtained via patient. History as above. - Chronic conditions affecting care: GERD - Differential diagnoses include, but are not limited to: Dysrhythmia; pulmonary embolism; ACS; electrolyte abnormality; sepsis; pneumonia; hypothyroidism; hyperthyroidism - Order placed for continuous cardiac monitoring. At this time, monitor showed rate of 120 bpm with normal sinus rhythm, per my interpretation. - External medical records reviewed. Primary care visit note dated was reviewed. Patient was seen for her hypoglycemic events. They plan to check a glucose tolerance test and a TSH. - EKG image obtained at 1228 interpreted by myself showed normal sinus rhythm. Rate tachycardic at 127 bpm. QT 304. No acute ischemic changes. - As noted above, while out in the waiting room having protocol orders performed, patient had worsening of her symptoms and her heart rate was up in the 150s. Repeat EKG image obtained at 1310 interpreted by myself showed normal sinus rhythm. Rate tachycardic at 132 bpm. QT 284. No acute ischemic changes. - Laboratory workup interpreted by myself showed leukocytosis (WBC 12.23); normal PT/INR; normal D-dimer; stable electrolytes; normal troponin; normal TSH; elevated parathyroid hormone - CXR image reviewed by myself negative for pneumonia, per my interpretation. - UA negative for infection - Patient given 1L NS with minimal improvement in her heart rate. She was given 0.5 mg of IV Ativan to see if we can slow her heart rate down. However, her heart rate remains persistently 120 and above. - TSH and parathyroid hormone levels added to workup. - Given patient's post-prandial symptoms, CT abdomen/pelvis was obtained. She did have a negative D-dimer, so potential chance of PE is less likely, given the negative D-dimer. So only CT abdomen/pelvis was obtained. - CT abdomen/pelvis with IV contrast negative for acute pathology. - Patient's heart rate remains persistently tachycardic. Will admit to hospitalist service for further evaluation. - Discussion was had with bilingual patient support caseworker about patient's case and need for admission - Hospitalist consulted for admission - Patient admitted to [facility] hospitalist service for further evaluation and management. ASSESSMENT AND PLAN: Diagnosis: Sinus tachycardia Plan: Admit Past Med/Surg History Problem List (Updated 09/07/24 @ 15:36 by Kati Crooks MD) Sinus tachycardia (Acute) Elevated fasting insulin level with normal glucose Perioral dermatitis Lumbar radiculopathy History of back problems Soft tissue mass Medical History Anemia Bronchitis GERD (gastroesophageal reflux disease) Migraine Ocular Surgical History H/O excision of mass (07/22/22) H/O exploratory laparotomy History of cholecystectomy (12/07/18) History of tooth extraction History of laparoscopy History of section Family History Grandmother (Paternal) Family history of diabetes mellitus Diabetes Grandmother (Maternal) Myocardial infarction Pancreatic cancer Cancer Hypertension Mother Heart disease Father Heart disease Other No pertinent family history Denies family history of Colon cancer Ovarian cancer Prostate cancer Breast cancer Social History (Updated 07/11/24 @ 09:14 by Chioma Alexis) Smoking Status: Never smoker Second Hand Exposure: No; Do You Dip or Chew Tobacco: No; Hx Alcohol Use: Yes Alcohol type: wine Alcohol Intake Frequency: Monthly or Less Alcohol Intake Frequency Comment: special occasions Hx Substance Use: No Preferred Language: Nigerien Communication Ability: Effective Visual Impairment: No Limitations Hearing Ability: Normal Rate Clerk Required: No Beliefs That Will Affect Care: None marital status: Current Living Situation: Spouse and Family Current Living Situation Comment: Lives with and children current occupational status: employed current occupation: woks at [employer] How many Children do You have: 4 How many Children do You have Comment: 4 and step daughter=5 Feels Safe at Home: Yes Childhood Exposure to Second-Hand Smoke: Yes Diet: regular during the past year weight has: decreased > 10 lbs Dental Care, Regularly: Yes Physical Activity Frequency: Other Physical Activity Frequency Comment: occas Seatbelt Use: always Sunscreen Use: Yes Assistive Devices: Contacts and Glasses Allergies Allergies Allergy/AdvReac Type Severity Reaction Status Date / Time No Known Allergies Allergy Verified 09/07/24 15:20 Home Meds Home Medications Medication Instructions Recorded Confirmed No Known Home Medications 09/07/24 09/07/24 Results & Data (ED) Vital Signs Vital Signs - 24 hr 09/07/24 11:53 09/07/24 11:53 09/07/24 13:28 Temperature 37 C Temperature Source Oral Pulse Rate 122 H Pulse Rate [Apical] 120 H Respiratory Rate 16 15 Respiratory Effort / Characteristics Non-Labored Spontaneous Non-Labored Spontaneous Respiratory Depth Normal Normal Respiratory Pattern Regular Blood Pressure 161/110 H Blood Pressure [Right Arm] 142/100 H Blood Pressure Mean 127 Blood Pressure Mean [Right Arm] 114 Pulse Oximetry 100 100 Oxygen Delivery Method Room Air Room Air Room Air Sepsis Recent Fever Within 48 Hours No Sepsis New/Unexplained Change in Mental Status No Sepsis Action Taken by Nursing No Action Required 09/07/24 13:28 09/07/24 15:00 Temperature Temperature Source Pulse Rate Pulse Rate [Apical] 102 H Respiratory Rate 21 Respiratory Effort / Characteristics Non-Labored Spontaneous Respiratory Depth Normal Respiratory Pattern Blood Pressure Blood Pressure [Right Arm] 136/84 Blood Pressure Mean Blood Pressure Mean [Right Arm] 101 Pulse Oximetry 100 100 Oxygen Delivery Method Room Air Room Air Sepsis Recent Fever Within 48 Hours Sepsis New/Unexplained Change in Mental Status Sepsis Action Taken by Nursing Laboratory Data 09/07/24 12:33 09/07/24 12:33 Lab Results 09/07/24 09/07/24 09/07/24 Range/Units 11:56 12:33 12:36 WBC 12.23 H (4.8-10.8) K/ul RBC 4.98 (4.20-5.40) M/uL Hgb 15.3 (12.0-16.0) g/dl Hct 43.3 (37.0-47.0) % MCV 86.9 (80.0-100.0) fL MCH 30.7 (25.0-34.0) pg MCHC 35.3 (32.0-36.0) g/dL RDW Std Deviation 37.7 (36.4-46.3) fL RDW Coeff of Stephanie 11.8 (11.5-14.5) % Plt Count 284 (130-400) K/uL MPV 10.9 (9.4-12.4) fL Immature Gran % (Auto) 0.4 % Neut % (Auto) 75.0 % Lymph % (Auto) 18.4 % Rains % (Auto) 5.6 % Eos % (Auto) 0.2 % Baso % (Auto) 0.4 % Neut # (Auto) 9.17 H (1.40-6.50) K/uL Lymph # (Auto) 2.25 (1.20-3.40) K/uL Rains # (Auto) 0.68 H (0.11-0.59) K/uL Eos # (Auto) 0.03 (0.00-0.50) K/uL Baso # (Auto) 0.05 (0.00-0.20) K/uL Immature Gran # (Auto) 0.05 (0.01-0.20) K/uL PT 10.6 (9.0-12.0) Seconds INR 1.0 (0.9-1.1) APTT 28 (21-31) Seconds PTT Ratio 1.0 D-Dimer 220 (0-500) ug/L FEU Sodium 138 (136-145) mmol/L Potassium 3.7 (3.5-5.1) mmol/L Chloride 106 (98-107) mmol/L Carbon Dioxide 25 (21-32) mmol/L Anion Gap 7 (3-11) BUN 13 (6-23) mg/dl Creatinine 0.84 (0.6-1.2) mg/dl Est Cr Clr Drug Dosing 90.4 ml/min eGFR 91.73 BUN/Creatinine Ratio 15.5 (10-20) Glucose 96 (70-99(Fasting)) mg/dl POC Glucose 107 H 89 (70-99) mg/dl Calcium 9.7 (8.6-10.3) mg/dl Total Bilirubin 0.7 (0.2-1.0) mg/dl AST 16 (13-39) U/L ALT 12 (7-52) U/L Alkaline Phosphatase 58 (34-104) U/L Troponin I High Sens 6.3 (0-14) pg/ml Total Protein 7.7 (6.0-8.3) gm/dl Albumin 4.9 (3.4-5.0) gm/dl Globulin 2.8 (2.5-4.0) gm/dl Albumin/Globulin Ratio 1.8 (0.9-2) TSH 2.457 (0.300-4.500) uIu/ml PTH Intact (12.0-88.0) pg/ml Urine Color Urine Appearance (Clear) Urine pH (4.5-7.5) Ur Specific [place] (1.000-1.030) Urine Protein (Negative) Urine Glucose (UA) (Negative) Urine Ketones (Negative) Urine Blood (Negative) Urine Nitrite (Negative) Urine Bilirubin (Negative) Urine Urobilinogen (Negative) Ur Leukocyte Esterase (Negative) 09/07/24 09/07/24 Range/Units 12:42 14:44 WBC (4.8-10.8) K/ul RBC (4.20-5.40) M/uL Hgb (12.0-16.0) g/dl Hct (37.0-47.0) % MCV (80.0-100.0) fL MCH (25.0-34.0) pg MCHC (32.0-36.0) g/dL RDW Std Deviation (36.4-46.3) fL RDW Coeff of Stephanie (11.5-14.5) % Plt Count (130-400) K/uL MPV (9.4-12.4) fL Immature Gran % (Auto) % Neut % (Auto) % Lymph % (Auto) % Rains % (Auto) % Eos % (Auto) % Baso % (Auto) % Neut # (Auto) (1.40-6.50) K/uL Lymph # (Auto) (1.20-3.40) K/uL Rains # (Auto) (0.11-0.59) K/uL Eos # (Auto) (0.00-0.50) K/uL Baso # (Auto) (0.00-0.20) K/uL Immature Gran # (Auto) (0.01-0.20) K/uL PT (9.0-12.0) Seconds INR (0.9-1.1) APTT (21-31) Seconds PTT Ratio D-Dimer (0-500) ug/L FEU Sodium (136-145) mmol/L Potassium (3.5-5.1) mmol/L Chloride (98-107) mmol/L Carbon Dioxide (21-32) mmol/L Anion Gap (3-11) BUN (6-23) mg/dl Creatinine (0.6-1.2) mg/dl Est Cr Clr Drug Dosing ml/min eGFR BUN/Creatinine Ratio (10-20) Glucose (70-99(Fasting)) mg/dl POC Glucose (70-99) mg/dl Calcium (8.6-10.3) mg/dl Total Bilirubin (0.2-1.0) mg/dl AST (13-39) U/L ALT (7-52) U/L Alkaline Phosphatase (34-104) U/L Troponin I High Sens (0-14) pg/ml Total Protein (6.0-8.3) gm/dl Albumin (3.4-5.0) gm/dl Globulin (2.5-4.0) gm/dl Albumin/Globulin Ratio (0.9-2) TSH (0.300-4.500) uIu/ml PTH Intact 146.1 H (12.0-88.0) pg/ml Urine Color Yellow Urine Appearance Clear (Clear) Urine pH 7.0 (4.5-7.5) Ur Specific [place] 1.002 (1.000-1.030) Urine Protein Negative (Negative) Urine Glucose (UA) Negative (Negative) Urine Ketones Negative (Negative) Urine Blood Negative (Negative) Urine Nitrite Negative (Negative) Urine Bilirubin Negative (Negative) Urine Urobilinogen Negative (Negative) Ur Leukocyte Esterase Negative (Negative) Administered Medications Discontinued Medications Sodium Chloride (Nss) 1,000 mls @ 999 mls/hr IV .Q1H1M ONE Stop: 09/07/24 14:14 Last Infusion: 09/07/24 14:43 Dose: Infused Documented By: Admin: 09/07/24 13:37 Dose: 999 mls/hr Documented By: GENE Ioversol (Optiray 320 100ml) 93 ml IV ONCE ONE Stop: 09/07/24 14:35 Last Admin: 09/07/24 14:34 Dose: 93 ml Documented By: YORDY Lorazepam (Lorazepam 2 Mg/1 Ml Vial) 1 mg IV NOW STA Stop: 09/07/24 13:46 Last Admin: 09/07/24 14:05 Dose: 1 mg Documented By: GENE Imaging Data Radiologist's Impression: Chest X-Ray 09/07/24 11:57 XR chest 1V not portable CLINICAL HISTORY: Chest pain, nonspecific COMPARISON STUDY: 03/13/2023 FINDINGS: Heart size and pulmonary vasculature are normal. No effusion, consolidation, or pneumothorax. IMPRESSION: No acute findings. ACT 112: Negative or not required by law. Electronically signed by: Bennie Ervin M.D. 09/07/2024 1:40 PM Abdomen/Pelvis CT 09/07/24 14:[address] WITH IV CONTRAST CT DOSE: 738.77 mGy.cm HISTORY: Acute tachycardia tachycardia; hypoglycemia TECHNIQUE: Multiaxial CT images of the abdomen and pelvis were performed following the IV administration of 93 cc of Optiray, A dose lowering technique was utilized adhering to the principles of ALARA. COMPARISON STUDY: 03/13/2023 FINDINGS: Clear lung bases. Unremarkable spleen, pancreas and adrenal glands. Cholecystectomy. There is patency of the hepatic and portal veins. Unremarkable liver. Subcentimeter hypodensity of the inferior pole left kidney, too small to characterize. Mild dilation of the right renal collecting system with mild urothelial thickening. Symmetric enhancement of the kidneys. No obstructing stone or lesion. Decompressed urinary bladder. Unremarkable uterus. Small bilateral ovarian follicles. Trace free pelvic fluid. No bowel obstruction or bowel wall thickening. The appendix is not clearly seen. No acute fracture. IMPRESSION: 1. Mild dilation of the right renal collecting system with urothelial thickening of the right ureter. Correlate with urinalysis. 2. No obstructing ureteral stone or lesion identified. 3. Bilateral small ovarian follicles with trace likely physiologic free pelvic fluid. 4. Limited evaluation of the bowel without enteric contrast. Nonvisualization of the appendix. ACT 112: Negative or not required by law. The above report was generated using voice recognition software. It may contain grammatical, syntax or spelling errors. Electronically signed by: Mert Hale M.D. 09/07/2024 2:46 PM Discharge Plan Visit Data Chief Complaint: Cardiac Assessment Stated Complaint: HEART PALP, WEAKNESS ED Provider: Kati Crooks Discharge Problem: Sinus tachycardia Forms Stand Alone Forms: [facility] Prescriptions Prescriptions: No Action No Known Home Medications Referrals Referrals: Jacqueline Ashley CRNP [Primary Care Provider] -
--- NOTE | 2024-09-07 14:33 | Electrocardiogram Report ---
Test Reason : Blood Pressure : */* mmHG Vent. Rate : 132 BPM Atrial Rate : 132 BPM P-R Int : 144 ms QRS Dur : 86 ms QT Int : 284 ms P-R-T Axes : 78 76 34 degrees QTcB Int : 420 ms Sinus tachycardia Biatrial enlargement Nonspecific ST abnormality Abnormal ECG When compared with ECG of 04-Mar-2018 17:14, Vent. rate has increased by [address] now depressed in Inferior leads Confirmed by Fausto Bower ([id number]) on 09/07/2024 2:33:19 PM Referred By: REFERRED SELF Confirmed By: Fausto Bower
[2024-09-07] MEDS: OPTIRAY 320 100ml IV ONE (14:34)
--- NOTE | 2024-09-07 14:47 | CT Scan Report ---
ABDOMEN AND PELVIS CT WITH IV CONTRAST CT DOSE: 738.77 mGy.cm HISTORY: Acute tachycardia tachycardia; hypoglycemia TECHNIQUE: Multiaxial CT images of the abdomen and pelvis were performed following the IV administrat ion of 93 cc of Optiray, A dose lowering technique was utilized adhering to the principles of ALARA. COMPARISON STUDY: 03/13/2023 FINDINGS: Clear lung bases. Unremarkable spleen, pancreas and adrenal glands. Cholecystectomy. There is patency of the hepatic and portal veins. Unremarkable liver. Subcentimeter hypodensity of the infe rior pole left kidney, too small to characterize. Mild dilation of the right renal collecting system with mild urothelial thickening. Symmetric enhancement of the kidneys. No obstructing stone or lesion . Decompressed urinary bladder. Unremarkable uterus. Small bilateral ovarian follicles. Trace free pe lvic fluid. No bowel obstruction or bowel wall thickening. The appendix is not clearly seen. No acute fracture. IMPRESSION: 1. Mild dilation of the right renal collecting system with urothelial thickening of the right ureter. Correlate with urinalysis. 2. No obstructing ureteral stone or lesion identified. 3. Bilateral small ovarian follicles with trace likely physiologic free pelvic fluid. 4. Limited evaluation of the bowel without enteric contrast. Nonvisualization of the appendix. ACT 112: Negative or not required by law. The above report was generated using voice recognition software. It may contain grammatical, syntax o r spelling errors. Electronically signed by: Mert Hale M.D. 09/07/2024 2:46 PM
[2024-09-07 15:11] LABS: Thyroid Stimulating Hormone 2.457 uIu/ml (0.300-4.500)
--- NOTE | 2024-09-07 15:38 | History & Physical Report ---
Date of Service September 07, 2024 Assessment & Plan (1) Palpitations: Plan: SInus tachycardia in a 39 yo female with accompanied symptoms of SOB, cramps. Unknown cause. Concern over endocrinological disorder. WIll check BNP, phos, procal mag. will initiate IVF and monitor her response. could this be secondary to dehydration vs autonomic dysfunction vs endocrinological disorder will check 2 hour posprandial glucose test. consult cards and will monitor History of Present Illness Chief Complaint: palpitations Primary Care Provider: IAIN Alfredo 39 yo female with no significant past medical history has been having intermittent episodes of palpitations followed by SOB, abdominal cramps and extreme thirst. ALso complains of being flush and dizzy at time. This has been ongoing for a few months now. Patient reports this has been related to when she eats,. These episodes occur about 20 minutes after eating. This has affected her to the point that she states she intermittently fasts during work hours so she does not have symptoms. She also reports remote history of orthostatic hypotension. She also reports having elevated insulin levels check in the past and episodes of being hypoglycemic. Allergies Allergy/AdvReac Type Severity Reaction Status Date / Time No Known Allergies Allergy Verified 09/07/24 15:20 Home Medications Medication Instructions Recorded Confirmed Type No Known Home Medications 09/07/24 09/07/24 History Past Med/Surg History Problem List Palpitations Sinus tachycardia (Acute) Elevated fasting insulin level with normal glucose Perioral dermatitis Lumbar radiculopathy History of back problems Soft tissue mass Medical History Bronchitis Anemia GERD (gastroesophageal reflux disease) Migraine Ocular Surgical History H/O excision of mass (07/22/22) Excision of lesion right inner thigh in office by Dr. Zhong FINAL DIAGNOSIS Skin, right thigh lesion, excision - Dermatofibroma H/O exploratory laparotomy 2015 History of cholecystectomy (12/07/18) Laparoscopic cholecystectomy (11/27/18): Grade view 1, MAC#3, ETT 7.0 at [facility] (scope patch used) History of tooth extraction WTE History of laparoscopy r/t endometriosis History of section x4 2008,2010,2013,2020 Family History Grandmother (Paternal) Family history of diabetes mellitus Diabetes Grandmother (Maternal) Myocardial infarction Pancreatic cancer Cancer Hypertension Mother Heart disease Father Heart disease Other No pertinent family history Denies family history of Colon cancer Ovarian cancer Prostate cancer Breast cancer Social History Smoking Status: Unknown if ever smoked Second Hand Exposure: No; Do You Dip or Chew Tobacco: No; Hx Alcohol Use: No Hx Substance Use: No Preferred Language: Romansh Communication Ability: Effective Visual Impairment: No Limitations Hearing Ability: Normal Resolution Rep Required: No Beliefs That Will Affect Care: None marital status: Current Living Situation: Spouse Current Living Situation Comment: Lives with and children current occupational status: employed current occupation: woks at [employer] How many Children do You have: 4 How many Children do You have Comment: 4 and step daughter=5 Other Information That Helps Us Care for You: No Feels Safe at Home: Yes Safety Concerns: Feels Safe At This Time Childhood Exposure to Second-Hand Smoke: Yes Diet: regular during the past year weight has: decreased > 10 lbs Dental Care, Regularly: Yes Physical Activity Frequency: Other Physical Activity Frequency Comment: occas Seatbelt Use: always Sunscreen Use: Yes Assistive Devices: Contacts and Glasses Review of Systems Constitutional: + fatigue and + malaise; no fever and no body aches Eyes: no blind spots and no discharge Ear, Nose, Mouth, Throat: + dizziness; no ear pain and no tinnitus Respiratory: + dyspnea; no cough Cardiovascular: + chest pain Gastrointestinal: + cramping Genitourinary: no dysuria Musculoskeletal: no back pain Integumentary: no acne Neurologic: no gait abnormality Psychiatric: no behavioral changes Endocrine: + fatigue Hematologic / Lymphatic: no easy bleeding Allergy / Immunological: no GI upset with certain foods Physical Exam Constitutional: + ill appearing Eyes: PERRL, conjunctivae normal, anicteric sclerae ENMT: external ear and nose normal, oropharynx normal Neck: trachea midline, no thyromegaly Respiratory: normal respiratory effort, lungs clear to auscultation Cardiovascular: RRR, no murmur, no edema Gastrointestinal (Abdomen): normal bowel sounds, soft, nontender, no hepatosplenomegaly Musculoskeletal: no cyanosis or clubbing, extremities motor strength 5/5 Skin: no rashes, warm and dry Neurologic: PERRL, EOMI, accommodation nl, no face palsy, no dysarthria Psychiatric: A+Ox3, euthymic affect Results & Data Results & Data Vital Signs (Past 12 Hours) Vital Signs Temp Pulse Pulse Resp BP BP Pulse Ox 09/07/24 15:00 102 H 21 136/84 100 09/07/24 13:28 100 09/07/24 13:28 120 H 15 142/100 H 100 09/07/24 11:53 09/07/24 11:53 37 C 122 H 16 161/110 H 100 O2 Del Method 09/07/24 15:00 Room Air 09/07/24 13:28 Room Air 09/07/24 13:28 Room Air 09/07/24 11:53 Room Air 09/07/24 11:53 Room Air PG Care Time/CCT Total # of Minutes Spent Total Time Spent with Patient: Total time spent is greater than 50% in coordination of care (as documented) at patient's floor/unit and/or counseling patient: Coding Level of Care Code 92143 INT INP/OBS CARE 3/75MIN Diagnoses Palpitations R00.2 Time Spent (min) 75
[2024-09-07] MEDS: SODIUM CHLORIDE 0.9% 1,000 ML IV SCH ×2 (15:43→18:16)
[2024-09-07 15:48] LABS: C Reactive Protein < 0.50 mg/dl (0-0.5)
[2024-09-07 16:31] LABS: Phosphorus 1.8 mg/dl (2.5-4.9)
--- NOTE | 2024-09-07 18:42 | Ultrasound Report ---
EXAM: US venous doppler LE CLINICAL HISTORY: Tachycardia x 1 day. No leg pain, swelling or redness. TECHNIQUE: Ultrasound examination of bilateral lower extremity veins was performed in real-time with duplex. The vascular flow was evaluated and shows adequate color flow with a normal spectral pattern of the flow waveform. COMPARISON: None. FINDINGS: Normal phasic, non-pulsatile, and spontaneous flow is noted in the bilateral common femoral, greater saphenous proximal at the junction, femoral, popliteal, anterior and posterior tibial/peroneal veins. There is no sonographic evidence of thrombosis in the visualized veins of both lower extremities. Compression and Augmentation: Visualized veins of both lower extremities demonstrate normal compressibility. Augmentation of venous flow is noted. Additional Findings: No other abnormality in the area was noted otherwise. IMPRESSION: No evidence of thrombosis of the visualized bilateral lower extremity veins at this time of exam. DISCLAIMER:DVT could be missed early in the disease when clot burden is minimal. For patients with moderate and high pretest probability of DVT and negative ultrasound, the [employer] clinical guidelines recommend testing with a d-dimer assay or repeat ultrasound in 5-7 days. If symptoms worsen, the Society of radiologists in ultrasound recommends repeating ultrasound even earlier. Electronically signed by Tien Rocha 09-07-2024 6:41 PM
[2024-09-08 06:38] LABS: Hematocrit (blood only) 37.4 % (37.0-47.0); Hemoglobin 12.6 g/dl (12.0-16.0); Mean Corpuscular Hemoglobin 30.4 pg (25.0-34.0); Mean Corpuscular Hgb Conc 33.7 g/dL (32.0-36.0); Mean Corpuscular Volume 90.1 fL (80.0-100.0); Mean Platelet Volume 10.9 fL (9.4-12.4); Platelet Count 227 K/uL (130-400); RDW Coefficient of Variation 12.1 % (11.5-14.5); RDW Standard Deviation 39.7 fL (36.4-46.3); Red Blood Count 4.15 M/uL (4.20-5.40); White Blood Count 6.34 K/ul (4.8-10.8)
[2024-09-08 07:15] LABS: Anion Gap 5 (3-11); Blood Urea Nitrogen 9 mg/dl (6-23); C Reactive Protein < 0.50 mg/dl (0-0.5); Calcium 8.1 mg/dl (8.6-10.3); Carbon Dioxide 23 mmol/L (21-32); Chloride 113 mmol/L (98-107); Creatinine Clr Calc Pharmacy 101.5 ml/min; Glucose 85 mg/dl (70-99(Fasting)); Magnesium 1.9 mg/dl (1.7-2.4); Phosphorus 2.8 mg/dl (2.5-4.9); Potassium 3.8 mmol/L (3.5-5.1); Sodium 141 mmol/L (136-145)
--- NOTE | 2024-09-08 08:22 | Cardiology Consultation ---
Date of Consultation September 08, 2024 Assessment & Plan (1) Sinus tachycardia: (2) Palpitations: Plan 1. Tachycardia: She has well-documented sinus tachycardia. According to the patient these episodes are paroxysmal in nature and generally occur shortly after a meal. Her telemetry overnight did not reveal any tachycardia. She is feeling well this morning. While I suppose it is possible that this was related to anxiety or an eating disorder (with associated anxiety), she did not seem particularly anxious. The correlation with eating is curious and at least interesting given her elevated insulin levels. Now she is also reporting some frequent loose stools. She also noted to have high parathyroid hormone. My concern would be tachycardia secondary to a hormone abnormality. I do not think she has a primary cardiac problem. I do not think this represents a primary arrhythmia. I think her sinus tachycardia is simply reactive. As such, I do not believe she benefits from medical therapy directed at her sinus tachycardia (i.e. rate controlling agents). History of Present Illness Reason for Consultation: Tachycardia, palpitations Requesting Physician: Ananda Attending Physician: Alvarez Malave History of Present Illness The patient is a 39-year-old woman without a known history of cardiac disease who presented to the emergency room by direction for symptoms of tachycardia, dizziness and presyncope. The patient states that for a few months now she has been experiencing some symptoms of palpitations. This is a sensation of rapid heartbeat and her watch will also document high heart rates while she is having symptoms. The episodes of cells tend to occur 15 to 20 minutes after eating. Very rare episodes at other times. The patient does snack throughout the day and cannot be sure that any episodes happen in the absence of eating. She has some associated dizziness at times. Also has some feeling of being flushed. No abdominal complaints. No diarrhea. Perhaps more constipation recently. She has changed her diet to include kombucha twice weekly and intermittent fasting. She states that during periods where she does not eat she generally does not have the symptoms and overall feels better. After eating and in the evenings after a meal she generally feels poorly. She has noticed some increased fatigue and general lassitude over the past few months. She did not report any specific exercise intolerance. She has not been exercising vigorously on a regular basis, but did not report any new limitations or symptoms such as dyspnea on exertion or chest pain. No actual syncope. She did report 3 episodes of "hypoglycemia". 1 episode involved feeling somewhat lightheaded and warm. She had some paresthesias on her face and between her index and thumb on the left hand. She noticed that her heart rate was in the 50s at that time. She thought perhaps she was hypoglycemic. When she was able to eat she continued to feel poorly for a while, primarily fatigue. Grandfather with extensive coronary disease. No other premature coronary disease in the family. No known malignancy in mother or father. Grandmother with pancreatic cancer. Son currently being evaluated for digestive issue. With her recent episode she is also been having frequent loose stools. Allergies Allergy/AdvReac Type Severity Reaction Status Date / Time No Known Allergies Allergy Verified 09/07/24 15:20 Home Medications Medication Instructions Recorded Confirmed Type No Known Home Medications 09/07/24 09/07/24 History Patient History Medical History Bronchitis Anemia GERD (gastroesophageal reflux disease) Migraine Ocular Surgical History H/O excision of mass (07/22/22) Excision of lesion right inner thigh in office by Dr. Zhong FINAL DIAGNOSIS Skin, right thigh lesion, excision - Dermatofibroma H/O exploratory laparotomy 2015 History of cholecystectomy (12/07/18) Laparoscopic cholecystectomy (11/27/18): Grade view 1, MAC#3, ETT 7.0 at [facility] (scope patch used) History of tooth extraction WTE History of laparoscopy r/t endometriosis History of section x4 2008,2010,2013,2020 Family History Grandmother (Paternal) Family history of diabetes mellitus Diabetes Grandmother (Maternal) Myocardial infarction Pancreatic cancer Cancer Hypertension Mother Heart disease Father Heart disease Other No pertinent family history Denies family history of Colon cancer Ovarian cancer Prostate cancer Breast cancer Social History Smoking Status: Unknown if ever smoked Second Hand Exposure: No; Do You Dip or Chew Tobacco: No; Hx Alcohol Use: No Hx Substance Use: No Preferred Language: Nepali Communication Ability: Effective Visual Impairment: No Limitations Hearing Ability: Normal Homeowner Association Manager Required: No Beliefs That Will Affect Care: None marital status: Current Living Situation: Spouse Current Living Situation Comment: Lives with and children current occupational status: employed 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 No new rashes or joint pains. No joint swelling. No galactorrhea. No visual disturbance. No diarrhea. Perhaps an element of constipation. Physical Exam Physical Exam: She is alert and oriented x3. Mood affect appear normal. She answered all questions appropriately. HEENT: Sclerae are anicteric. Pupils are equal and reactive to light and accommodation. Extraocular movements were intact. Neuro: Cranial nerves intact Lungs: Lungs are clear to auscultation bilaterally. There are no rales wheezes or rhonchi. She has normal respiratory effort without use of accessory muscles. There is normal pulmonary excursion. Cardiac: The rhythm was regular. S1 and S2 were normal. There are no murmurs on examination. The PMI was not markedly displaced on palpation. Extremities: Patient has bilateral radial pulses that are equal in intensity. There is no evidence cyanosis or clubbing. There was no evidence of significant peripheral edema bilaterally. Skin: There are no rashes noted on examination today. Results & Data Vital Signs (Past 12 Hours) Vital Signs Temp Pulse Pulse Resp BP Pulse Ox O2 Del Method 09/08/24 07:04 36.9 C 88 18 103/64 98 Room Air 09/08/24 06:58 91 H 09/08/24 03:26 36.7 C 97 H 18 103/66 99 Room Air 09/08/24 00:54 Room Air 09/08/24 00:00 103 H 09/07/24 23:57 36.9 C 92 H 19 110/71 97 Room Air 09/07/24 21:47 36.8 C 99 H 16 119/71 97 Room Air Laboratory Results Abnormal Lab Results 09/07/24 09/07/2425 11:56 12:33 12:36 WBC 12.23 H RBC 4.98 Hgb 15.3 Hct 43.3 MCV 86.9 MCH 30.7 MCHC 35.3 RDW Std Deviation 37.7 RDW Coeff of Stephanie 11.8 Plt Count 284 MPV 10.9 Immature Gran % (Auto) 0.4 Neut % (Auto) 75.0 Lymph % (Auto) 18.4 Fallon % (Auto) 5.6 Eos % (Auto) 0.2 Baso % (Auto) 0.4 Neut # (Auto) 9.17 H Lymph # (Auto) 2.25 Fallon # (Auto) 0.68 H Eos # (Auto) 0.03 Baso # (Auto) 0.05 Immature Gran # (Auto) 0.05 PT 10.6 INR 1.0 APTT 28 PTT Ratio 1.0 D-Dimer 220 Sodium 138 Potassium 3.7 Chloride 106 Carbon Dioxide 25 Anion Gap 7 BUN 13 Creatinine 0.84 Est Cr Clr Drug Dosing 90.4 eGFR 91.73 BUN/Creatinine Ratio 15.5 Glucose 96 POC Glucose 107 H 89 Glucose 2 Hr Postprand Calcium 9.7 Phosphorus 1.8 L Magnesium 2.0 Total Bilirubin 0.7 AST 16 ALT 12 Alkaline Phosphatase 58 Troponin I High Sens 6.3 C-Reactive Protein < 0.50 B-Natriuretic Peptide Total Protein 7.7 Albumin 4.9 Globulin 2.8 Albumin/Globulin Ratio 1.8 25-OH Vitamin D Total 26.3 L TSH 2.457 PTH Intact Urine Color Urine Appearance Urine pH Ur Specific Newton Urine Protein Urine Glucose (UA) Urine Ketones Urine Blood Urine Nitrite Urine Bilirubin Urine Urobilinogen Ur Leukocyte Esterase 09/07/24 09/07/24 09/07/24 12:42 14:44 21:33 WBC RBC Hgb Hct MCV MCH MCHC RDW Std Deviation RDW Coeff of Stephanie Plt Count MPV Immature Gran % (Auto) Neut % (Auto) Lymph % (Auto) Fallon % (Auto) Eos % (Auto) Baso % (Auto) Neut # (Auto) Lymph # (Auto) Fallon # (Auto) Eos # (Auto) Baso # (Auto) Immature Gran # (Auto) PT INR APTT PTT Ratio D-Dimer Sodium Potassium Chloride Carbon Dioxide Anion Gap BUN Creatinine Est Cr Clr Drug Dosing eGFR BUN/Creatinine Ratio Glucose POC Glucose Glucose 2 Hr Postprand 92 Calcium Phosphorus Magnesium Total Bilirubin AST ALT Alkaline Phosphatase Troponin I High Sens C-Reactive Protein B-Natriuretic Peptide Total Protein Albumin Globulin Albumin/Globulin Ratio 25-OH Vitamin D Total TSH PTH Intact 146.1 H Urine Color Yellow Urine Appearance Clear Urine pH 7.0 Ur Specific Newton 1.002 Urine Protein Negative Urine Glucose (UA) Negative Urine Ketones Negative Urine Blood Negative Urine Nitrite Negative Urine Bilirubin Negative Urine Urobilinogen Negative Ur Leukocyte Esterase Negative 09/08/24 09/08/24 05:29 07:06 WBC 6.34 RBC 4.15 L Hgb 12.6 Hct 37.4 MCV 90.1 MCH 30.4 MCHC 33.7 RDW Std Deviation 39.7 RDW Coeff of Stephanie 12.1 Plt Count 227 MPV 10.9 Immature Gran % (Auto) Neut % (Auto) Lymph % (Auto) Fallon % (Auto) Eos % (Auto) Baso % (Auto) Neut # (Auto) Lymph # (Auto) Fallon # (Auto) Eos # (Auto) Baso # (Auto) Immature Gran # (Auto) PT INR APTT PTT Ratio D-Dimer Sodium 141 Potassium 3.8 Chloride 113 H Carbon Dioxide 23 Anion Gap 5 BUN 9 Creatinine 0.75 Est Cr Clr Drug Dosing 101.5 eGFR 105.09 BUN/Creatinine Ratio 12.0 Glucose 85 POC Glucose 80 Glucose 2 Hr Postprand Calcium 8.1 L Phosphorus 2.8 D Magnesium 1.9 Total Bilirubin AST ALT Alkaline Phosphatase Troponin I High Sens C-Reactive Protein < 0.50 B-Natriuretic Peptide 40 Total Protein Albumin Globulin Albumin/Globulin Ratio 25-OH Vitamin D Total TSH PTH Intact Urine Color Urine Appearance Urine pH Ur Specific Newton Urine Protein Urine Glucose (UA) Urine Ketones Urine Blood Urine Nitrite Urine Bilirubin Urine Urobilinogen Ur Leukocyte Esterase Diagnostic Findings Chest x-ray did not denote any acute cardiopulmonary process Abdomen and pelvis CT demonstrated some minor abnormalities of the renal collecting system and a small amount of intraperitoneal fluid. Ovarian follicles noted. Venous Doppler lower extremities did not reveal any thrombosis. ECG Additional Comments: EKG obtained at time admission revealed a sinus tachycardia PG Care Time/CCT Total # of Minutes Spent Total Time Spent with Patient: Total time spent is greater than 50% in coordination of care (as documented) at patient's floor/unit and/or counseling patient: Coding Level of Care Code 07340 OFFICE CONSULT LVL 4/40M Diagnoses Sinus tachycardia R00.0 Palpitations R00.2
[2024-09-08 11:29] LABS: Estimated Average Glucose 94 mg/dl; Hemoglobin A1C 4.9 % (4.5-5.6)
[2024-09-08] MEDS: GADOBUTROL 30ML VIAL IV ONE (15:28)
--- NOTE | 2024-09-08 16:54 | Magnetic Resonance Report ---
EXAM: MR abdomen wo/w con CLINICAL HISTORY: Dedicated pancreatic protocol: hypoglycemia. TECHNIQUE: Multiplanar, multisequence MR imaging was performed through the abdomen with and without IV contrast, with dedicated assessment of the pancreas by dynamic study. COMPARISON: CT 03/13/2023. FINDINGS: Pancreas: Normal size and contour. Homogeneous signal intensity on T1 and T2-weighted images. No masses or cystic lesions. Normal enhancement post-contrast. Liver: Normal size and morphology. Homogeneous signal intensity on T1 and T2-weighted images. A small simple cyst in segment measures 4 mm No focal hepatic lesions. Normal enhancement pattern post-contrast. Gallbladder and Biliary System: Gallbladder is surgically removed , clear operative bed Intrahepatic and extrahepatic bile ducts are not dilated. Spleen: Normal size and appearance. Homogeneous signal intensity. No focal lesions. Normal enhancement post-contrast. Adrenal Glands: Normal size and morphology bilaterally. No adrenal masses. Normal enhancement post-contrast. Kidneys and Ureters: Normal size, shape, and position of both kidneys. right extr renal pelvis still seen. Homogeneous signal intensity on T1 and T2-weighted images. No renal stones, masses, or hydronephrosis. Ureters are unremarkable. Normal enhancement post-contrast. Bladder: Normal in size and wall thickness. No intraluminal masses. Normal enhancement post-contrast. Bowel: Normal appearance of the visualized bowel loops. No evidence of obstruction, wall thickening, or abnormal dilatation. No abnormal enhancement post-contrast. Vascular Structures: Abdominal aorta and its major branches are normal in caliber. No aneurysm or significant atherosclerosis. Normal enhancement post-contrast. Lymph Nodes: No pathologically enlarged lymph nodes in the abdomen. Peritoneum: No free fluid or free air in the abdomen. Bones: No lytic or sclerotic lesions. Soft Tissues: Normal appearance of the visualized soft tissues. IMPRESSION: 1. Normal appearance of the pancreas, no evident focal lesions, or abnormality 2. Small segment hepatic simple cyst 3. No evidence of significant abnormalities. 4. No significant interval changes. Electronically signed by Tien Rocha 09-08-2024 4:53 PM
--- NOTE | 2024-09-08 18:28 | XCELERA ---
[id number]
--- NOTE | 2024-09-08 22:09 | Hospitalist Progress Note ---
Date of Service September 08, 2024 Assessment & Plan (1) Palpitations: Plan: SInus tachycardia in a 39 yo female with accompanied symptoms of SOB, cramps. Unknown cause. Concern over endocrinological disorder. Concern for pheochromocytoma, diabetes insipidus. I had extensive discussion with Mechanical Meter Tester and patient. Will order MRI of abdomen to assess for any insulinoma as patient reports having elevated insulin levels as well as any adenoma of adrenal glands. WIll also order MR of her pituitary gland. Had multiple visits to room to discuss with patient and/or nurse. Reviewed MRI of abd and this was negative. may consider water deprivation test as patient is drinking more water than usual. Admission and Anticipated Discharge Date Admission Date: September 07, 2024 Subjective 39 yo female reports having another episode this morning. This occurred around breakfast. Patient reports feeling flushed, followed by extremities having pins and n eedles, this then led to an episode of tachycardia in the 130-150s. After these episodes occur she has to have a bowel movement. Review of Systems Review of Systems: All systems reviewed & are unremarkable except as noted in HPI & below Physical Exam Constitutional: + ill appearing Eyes: PERRL, conjunctivae normal, anicteric sclerae ENMT: external ear and nose normal, oropharynx normal Neck: trachea midline, no thyromegaly Respiratory: normal respiratory effort, lungs clear to auscultation Cardiovascular: RRR, no murmur, no edema Gastrointestinal (Abdomen): normal bowel sounds, soft, nontender, no hepatosplenomegaly Musculoskeletal: no cyanosis or clubbing, extremities motor strength 5/5 Skin: no rashes, warm and dry Neurologic: PERRL, EOMI, accommodation nl, no face palsy, no dysarthria Psychiatric: A+Ox3, euthymic affect Results & Data Results & Data Vital Signs (Past 12 Hours) Vital Signs Temp Pulse Resp BP Pulse Ox O2 Del Method O2 Del Method 09/08/24 20:00 37.1 C 81 18 109/74 Room Air 09/08/24 17:00 Room Air 09/08/24 16:11 37.0 C 107 H 18 106/77 97 Room Air 09/08/24 11:28 36.9 C 93 H 18 117/75 97 Room Air PG Care Time/CCT Total # of Minutes Spent Total Time Spent with Patient: Total time spent is greater than 50% in coordination of care (as documented) at patient's floor/unit and/or counseling patient: Prolonged Care Time Prolonged Care Time: Yes Total Prolonged Care Time: 80 7:30 to 8:20 10:10-10:20 13:00 to 13:10 22:20 to 22:30 Coding Level of Care Code 14579 SUB INP/OBS CARE 3/50MIN (25 - SIGNIFICANT, SEPARATELY IDENTIFIABLE ) Diagnoses Palpitations R00.2 Additional Codes Prolonged Care Time - Prolonged Care Time: Yes ([id number])
[2024-09-09 07:21] LABS: Hematocrit (blood only) 42.9 % (37.0-47.0); Hemoglobin 14.9 g/dl (12.0-16.0); Mean Corpuscular Hemoglobin 30.6 pg (25.0-34.0); Mean Corpuscular Hgb Conc 34.7 g/dL (32.0-36.0); Mean Corpuscular Volume 88.1 fL (80.0-100.0); Mean Platelet Volume 10.3 fL (9.4-12.4); Platelet Count 240 K/uL (130-400); RDW Standard Deviation 38.6 fL (36.4-46.3); Red Blood Count 4.87 M/uL (4.20-5.40); White Blood Count 5.97 K/ul (4.8-10.8)
[2024-09-09 07:49] LABS: BUN Creatinine Ratio 15.9 (10-20); Calcium 9.2 mg/dl (8.6-10.3); Creatinine Clr Calc Pharmacy 92.5 ml/min; Potassium 4.3 mmol/L (3.5-5.1)
[2024-09-09] MEDS: ONDANSETRON INJ 2 MG/ML 2 ML VIAL IV PRN (07:58)
[2024-09-09] MEDS: CHOLECALCIFEROL 25 MCG (1000 UNITS) TAB PO SCH (11:50)
[2024-09-09] MEDS: LORazepam 2 MG/1 ML VIAL IV STA (14:21)
[2024-09-09] MEDS: GADOBUTROL 7.5ML VIAL IV ONE (15:12)
--- NOTE | 2024-09-09 17:51 | Magnetic Resonance Report ---
EXAM: MR brain pituitary wo/w con CLINICAL HISTORY: dedicated sellar protocol: palpitation, cramps. TECHNIQUE: Different pulse sequences were performed in different planes for the brain and pituitary gland without and with GD-DTPA. 7 mL gadavist was injected intravenously without complications. Images were sent through PACs for interpretation. COMPARISON: None. FINDINGS: Pituitary Gland: Normal size and shape of the pituitary gland ( 5 x8 mm along maximum height and AP dimensions). Homogeneous signal intensity on T1 and T2-weighted images. No evidence of pituitary microadenoma or macroadenoma. Normal enhancement post-contrast. Pituitary Stalk: Normal appearance and signal intensity of the pituitary stalk. No thickening or deviation. Normal enhancement post-contrast. Sella Turcica: Normal size and morphology of the sella turcica. No evidence of sellar expansion or bone erosion. Cavernous Sinuses: Normal appearance of the cavernous sinuses bilaterally. No evidence of mass effect or abnormal signal. Normal enhancement post-contrast. Optic Chiasm: Normal appearance of the optic chiasm. No compression or abnormal signal changes. Suprasellar Region: Normal appearance of the suprasellar region. No masses or cystic lesions. Normal enhancement post-contrast. Brain Parenchyma: Normal signal intensity in the visualized portions of the brain. No evidence of acute infarct, hemorrhage, or mass effect. Ventricular System: Ventricles are normal in size and configuration. No evidence of hydrocephalus or ventricular enlargement. Hypertrophied right inferior nasal turbinate. Mild nasal septum deviation to the right. IMPRESSION: 1. Normal MRI of the pituitary gland with and without contrast. 2. No evidence of significant abnormalities. Electronically signed by Tien Rocha 09-09-2024 5:50 PM
--- NOTE | 2024-09-09 20:00 | Hospitalist Progress Note ---
Date of Service September 09, 2024 Assessment & Plan (1) Palpitations: Plan: SInus tachycardia in a 39 yo female with accompanied symptoms of SOB, cramps. Unknown cause. Concern over endocrinological disorder. Concern for pheochromocytoma, diabetes insipidus. MRI of abd to assess nacreas specifically for insulinoma was negative. No adenoma were noted either MRI of the pituitary gland was normal. Perhaps central DI. may consider water deprivation test as patient is drinking more water than usual. will order this test tomorrow and discuss with endocrinology. Admission and Anticipated Discharge Date Admission Date: September 07, 2024 Subjective Patient reports no new symptoms. SHe conitnues to feel thirsty and is drinking water generously. SHe also has had episodes of fatigue, dizziness, nausea. She states she gets a bubble in her chest. Review of Systems Review of Systems: All systems reviewed & are unremarkable except as noted in HPI & below Physical Exam Constitutional: + ill appearing Eyes: PERRL, conjunctivae normal, anicteric sclerae ENMT: external ear and nose normal, oropharynx normal Neck: trachea midline, no thyromegaly Respiratory: normal respiratory effort, lungs clear to auscultation Cardiovascular: RRR, no murmur, no edema Gastrointestinal (Abdomen): normal bowel sounds, soft, nontender, no hepatosplenomegaly Musculoskeletal: no cyanosis or clubbing, extremities motor strength 5/5 Skin: no rashes, warm and dry Neurologic: PERRL, EOMI, accommodation nl, no face palsy, no dysarthria Psychiatric: A+Ox3, euthymic affect Results & Data Results & Data Vital Signs (Past 12 Hours) Vital Signs Temp Pulse Resp BP Pulse Ox O2 Del Method O2 Del Method 09/09/24 17:00 Room Air 09/09/24 11:18 36.8 C 134 H 18 122/82 100 Room Air PG Care Time/CCT Total # of Minutes Spent Total Time Spent with Patient: Total time spent is greater than 50% in coordination of care (as documented) at patient's floor/unit and/or counseling patient: Coding Level of Care Code 89397 SUB INP/OBS CARE 3/50MIN Diagnoses Palpitations R00.2
[2024-09-10 11:14] LABS: BUN Creatinine Ratio 12.8 (10-20); Calcium 9.5 mg/dl (8.6-10.3); Creatinine Clr Calc Pharmacy 88.9 ml/min
[2024-09-10] MEDS: ACETAMINOPHEN 325 MG TAB PO ONE (19:41)
[2024-09-10] MEDS: DOXAZOSIN MESYLATE 1 MG TAB PO SCH (21:31)
[2024-09-10] MEDS: LORazepam 0.5 MG TAB PO STA (22:35)
--- NOTE | 2024-09-10 22:42 | Hospitalist Progress Note ---
Date of Service September 10, 2024 Assessment & Plan (1) Palpitations: Plan: SInus tachycardia in a 39 yo female with accompanied symptoms of SOB, cramps. Unknown cause. Concern over endocrinological disorder. Concern for pheochromocytoma, diabetes insipidus. MRI of abd to assess nacreas specifically for insulinoma was negative. No adenoma were noted either MRI of the pituitary gland was normal. Perhaps central DI. Water deprivation test was ordered by myself. The machine that checks for osmolality is not working. Needed to complerte this with urine specific gravity which id show urine contrated as she was deprived from water. This essentially rules out Diabetes inspidus. Will need to keep a water journal. awaiting resuts for metanephrines. Patient will be empirically treated with alpha and beta blockade. will monitor closely as concern for bradycardia from overtreating. reaching out to endocrinology.. Admission and Anticipated Discharge Date Admission Date: September 07, 2024 Subjective Patient reports having symptoms of havign a bubble in her chest, this is folowed by tachycardia. Patient reports also a mild headache. Physical Exam Constitutional: well developed and well nourished; no acute distress Eyes: PERRL, conjunctivae normal, anicteric sclerae ENMT: external ear and nose normal, oropharynx normal Neck: trachea midline, no thyromegaly Respiratory: normal respiratory effort Gastrointestinal (Abdomen): normal bowel sounds, soft, nontender, no hepatosplenomegaly Skin: no rashes, warm and dry Psychiatric: A+Ox3, euthymic affect Results & Data Results & Data Vital Signs (Past 12 Hours) Vital Signs Temp Pulse Pulse Resp BP BP Pulse Ox 09/10/24 21:30 81 106/61 09/10/24 19:18 36.9 C 80 18 95/71 L 97 09/10/24 15:25 84 09/10/24 14:26 36.9 C 93 H 16 114/71 100 09/10/24 13:30 36.9 C 88 16 117/75 100 09/10/24 12:39 37.0 C 78 18 105/76 98 09/10/24 11:33 36.8 C 82 17 104/61 98 O2 Del Method 09/10/24 21:30 09/10/24 19:18 Room Air 09/10/24 15:25 09/10/24 14:26 Room Air 09/10/24 13:30 Room Air 04/21/25 12:39 Room Air 09/10/24 11:33 Room Air PG Care Time/CCT Total # of Minutes Spent Total Time Spent with Patient: Total time spent is greater than 50% in coordination of care (as documented) at patient's floor/unit and/or counseling patient: Prolonged Care Time Prolonged Care Time: Yes Total Prolonged Care Time: 70 8:00 to 8:30 10:20 to 1:30 12:30 to 12:40 2:30 to 2:40 3:40 to 3:50 Coding Level of Care Code 67449 SUB INP/OBS CARE 3/50MIN (25 - SIGNIFICANT, SEPARATELY IDENTIFIABLE ) Diagnoses Palpitations R00.2 Additional Codes Prolonged Care Time - Prolonged Care Time: Yes ([id number]) Time Spent (min) 70
[2024-09-11 06:32] LABS: Hematocrit (blood only) 39.4 % (37.0-47.0); Hemoglobin 13.8 g/dl (12.0-16.0); Mean Corpuscular Hemoglobin 30.3 pg (25.0-34.0); Mean Corpuscular Volume 86.6 fL (80.0-100.0); Platelet Count 238 K/uL (130-400); RDW Coefficient of Variation 11.8 % (11.5-14.5); RDW Standard Deviation 37.4 fL (36.4-46.3); Red Blood Count 4.55 M/uL (4.20-5.40)
[2024-09-11 06:38] LABS: Calcium 8.8 mg/dl (8.6-10.3); Potassium 3.9 mmol/L (3.5-5.1)
[2024-09-11 06:43] LABS: BUN Creatinine Ratio 16.7 (10-20); Creatinine Clr Calc Pharmacy 88.9 ml/min
[2024-09-11] MEDS: METOPROLOL TARTRATE 25 MG TAB PO SCH (08:47)
[2024-09-11] MEDS: ACETAMINOPHEN 325 MG TAB PO PRN (09:19)
--- NOTE | 2024-09-11 15:12 | Electrocardiogram Report ---
Test Reason : Blood Pressure : */* mmHG Vent. Rate : 127 BPM Atrial Rate : 127 BPM P-R Int : 144 ms QRS Dur : 88 ms QT Int : 304 ms P-R-T Axes : 75 80 39 degrees QTcB Int : 441 ms Sinus tachycardia Biatrial enlargement Abnormal ECG When compared with ECG of 04-Mar-2018 17:14, Vent. rate has increased by 51 bpm Non-specific change in ST segment in Inferior leads ST now depressed in Lateral leads T wave inversion now evident in Inferior leads Nonspecific T wave abnormality now evident in Lateral leads Confirmed by Isaiah Winter ([id number]) on 09/11/2024 3:11:34 PM Referred By: REFERRED SELF Confirmed By: Isaiah Winter
[2024-09-11] MEDS ORDERED: GLUCOSE 40% GEL 15 GM TUBE PO PRN (20:48)
[2024-09-11] MEDS ORDERED: GLUCOSE 10 TAB/TUBE PO PRN (20:48)
[2024-09-11] MEDS ORDERED: DEXTROSE 50% 50 ML SYRINGE IV PRN (20:48)
[2024-09-11] MEDS ORDERED: GLUCAGON FOR INJ 1 MG VIAL SQ PRN (20:48)
[2024-09-11] MEDS ORDERED: CARBOHYDRATES FOR HYPOGLYCEMIA PO PRN (20:48)
--- NOTE | 2024-09-11 21:54 | Hospitalist Progress Note ---
Date of Service September 11, 2024 Assessment & Plan (1) Palpitations: Plan: SInus tachycardia in a 39 yo female with accompanied symptoms of SOB, cramps. Unknown cause. Concern over endocrinological disorder. Concern for pheochromocytoma: though unlikely given lack of hypertension diabetes insipidus ruled out as urine concentrated with water depirvation test (check urine sodium and urine specific gravity) May benenfit from a water journal MRI of abd to assess pancreas specifically for insulinoma was negative. No adenoma were noted either MRI of the pituitary gland was normal. awaiting results for metanephrines. Patient will be empirically treated with alpha and beta blockade. will monitor closely as concern for bradycardia from overtreating. Reach out to endocrinology, will do a 16 hour fasting and then will check insulin, c peptide and am cortisol. Patient started fasting at 12:10 in the afternoon. Aske patient for any family history that could mimic these symptoms, she said no. Admission and Anticipated Discharge Date Admission Date: September 07, 2024 Subjective Patient reports feeling less palpitations today with the betablocker. When patient ambulated her HR jumped to the 150s. Physical Exam Constitutional: well developed, well nourished and + ill appearing; no acute distress Eyes: PERRL, conjunctivae normal, anicteric sclerae ENMT: external ear and nose normal, oropharynx normal Neck: trachea midline, no thyromegaly Respiratory: normal respiratory effort, lungs clear to auscultation normal respiratory effort Cardiovascular: RRR, no murmur, no edema Gastrointestinal (Abdomen): normal bowel sounds, soft, nontender, no hepatosplenomegaly Musculoskeletal: no cyanosis or clubbing, extremities motor strength 5/5 Skin: no rashes, warm and dry Neurologic: PERRL, EOMI, accommodation nl, no face palsy, no dysarthria Psychiatric: A+Ox3, euthymic affect Results & Data Results & Data Vital Signs (Past 12 Hours) Vital Signs Temp Pulse Pulse Resp BP Pulse Ox O2 Del Method 09/11/24 19:46 36.8 C 72 18 108/71 100 Room Air 09/11/24 15:38 87 09/11/24 14:55 36.8 C 87 18 99/73 L 98 Room Air 09/11/24 12:37 114/68 09/11/24 12:11 36.8 C 93 H 18 89/67 L 100 Room Air PG Care Time/CCT Total # of Minutes Spent Total Time Spent with Patient: Total time spent is greater than 50% in coordination of care (as documented) at patient's floor/unit and/or counseling patient: Coding Level of Care Code 53914 SUB INP/OBS CARE 3/50MIN Diagnoses Palpitations R00.2
[2024-09-12] MEDS: LORazepam 0.5 MG TAB PO STA (05:45)
[2024-09-12 06:07] LABS: Hematocrit (blood only) 41.1 % (37.0-47.0); Hemoglobin 14.4 g/dl (12.0-16.0); Mean Corpuscular Hemoglobin 30.5 pg (25.0-34.0); Mean Corpuscular Volume 87.1 fL (80.0-100.0); Mean Platelet Volume 10.7 fL (9.4-12.4); Platelet Count 258 K/uL (130-400); RDW Coefficient of Variation 11.7 % (11.5-14.5); RDW Standard Deviation 37.2 fL (36.4-46.3); Red Blood Count 4.72 M/uL (4.20-5.40); White Blood Count 6.43 K/ul (4.8-10.8)
[2024-09-12 06:28] LABS: Calcium 9.4 mg/dl (8.6-10.3); Creatinine Clr Calc Pharmacy 91.8 ml/min; Magnesium 2.1 mg/dl (1.7-2.4); Phosphorus 3.8 mg/dl (2.5-4.9); Potassium 3.5 mmol/L (3.5-5.1)
--- NOTE | 2024-09-12 10:32 | Fluoroscopy Report ---
FL barium swallow CLINICAL HISTORY: 39 years-old Female with tachycardia, feeling of food getting stuck. Tachycardia w ith dysphagia and chest pain TECHNIQUE: Barium contrast and effervescent crystals were administered to the patient under fluorosco pic examination. Multiple images were obtained and submitted for review. FLUOROSCOPY TIME: 33 seconds FLUOROSCOPY IMAGES: 22 Ka,r: 9.80 mGy COMPARISON: CT abdomen and pelvis 09/07/2024 FINDINGS: During deglutition, contrast material flowed freely through the cervical esophagus. No filling defec t or mucosal abnormality is identified. No abnormal stricturing or mass effect is seen. The mid to distal esophagus is well coated and distended. No abnormal stricturing or mucosal abnormality is sarah ntified. No significant reflux or hiatal hernia was demonstrated during the exam. The GE junction i s normal in appearance. IMPRESSION: Unremarkable esophagram. ACT 112: Negative or not required by law. The above report was generated using voice recognition software. It may contain grammatical, syntax o r spelling errors. Electronically signed by: Mert Hale M.D. 09/12/2024 10:30 AM
[2024-09-12] MEDS: LACTATED RINGER'S 1,000 ML IV SCH (10:45)
[2024-09-12] MEDS: METOPROLOL TARTRATE 25 MG TAB PO STA (12:53)
[2024-09-12 14:57] VITALS: RESP 18; TEMP 97.9; O2SAT 99
[2024-09-12] MEDS: FLUDROCORTISONE ACETATE 0.1 MG TAB PO ONE (17:11)
[2024-09-12 17:17] VITALS: BP 95/71; PULSE 81
[2024-09-12] MEDS: SODIUM CHLORIDE 1 GM TABLET PO ONE (17:23)
[2024-09-14 09:36] LABS: C-Peptide 1.63 ng/mL (0.80-3.85); Insulin Total, Fasting 10.2 uIU/mL
--- NOTE | 2024-09-14 10:52 | Discharge Summary ---
Discharge Summary Date of Service September 12, 2024 Principal Dx & Hospital Course #1 = Principal Diagnosis (1) Palpitations: SInus tachycardia in a 39 yo female with accompanied symptoms of SOB, cramps. Unknown cause: after workup, this is likely due to Inappropriate tachycardia syndrome or POTS. Patient improved with beta blockers. In the short term will place on salt tablets and beta blockers. Once patient's symptoms stabilize in the outpatient setting, we may consider tapering off salt tablets and assess if patient's symptoms remain stable. This could be one way to differentiate POTS from Inappropriate tachycardia There was concern over endocrinological disorder. However pheochromocytoma: though unlikely given lack of hypertension. She is on alpha blocer due to this possibility, metanephrine testing is pending. diabetes insipidus ruled out as urine concentrated with water depirvation test (checked urine sodium and urine specific gravity) May benefit from a water journal MRI of abd to assess pancreas specifically for insulinoma was negative. No adenoma were noted either MRI of the pituitary gland was normal. Completed 16 hour fasting and checked insulin, c peptide Results pending. Cortisol is normal. Admission HPI Per Admitting Provider 39 yo female with no significant past medical history has been having intermittent episodes of palpitations followed by SOB, abdominal cramps and extreme thirst. ALso complains of being flush and dizzy at time. This has been ongoing for a few months now. Patient reports this has been related to when she eats,. These episodes occur about 20 minutes after eating. This has affected her to the point that she states she intermittently fasts during work hours so she does not have symptoms. She also reports remote history of orthostatic hypotension. She also reports having elevated insulin levels check in the past and episodes of being hypoglycemic. Discharge Exam Constitutional well developed and well nourished; no acute distress and not ill appearing Eyes PERRL, conjunctivae normal, anicteric sclerae ENMT external ear and nose normal, oropharynx normal Neck trachea midline, no thyromegaly Respiratory normal respiratory effort, lungs clear to auscultation normal respiratory effort Cardiovascular RRR, no murmur, no edema Gastrointestinal (Abdomen) normal bowel sounds, soft, nontender, no hepatosplenomegaly Musculoskeletal no cyanosis or clubbing, extremities motor strength 5/5 Skin no rashes, warm and dry Neurologic PERRL, EOMI, accommodation nl, no face palsy, no dysarthria Psychiatric A+Ox3, euthymic affect Discharge Plan Discharge Items Patient Disposition: Home - Self-Care Reason For Visit: TACHYCARDIC Discharge Diagnosis: tachycardic Activity: Resume your previous activity Non-emergency contact: Primary Care Provider Call non-emergency contact if: you have any medication questions Follow-up/Referrals: Jacqueline Ashley CRNP [Primary Care Provider] - 09/19/24 11:00 am (PCP follow up: 09/19/2024 @ 11am) Diet: Regular Addtl Attending Provider Instructions: You were seen for an elevated heart rate and Shortness of breath. You had an extensive work up: This included: MRI of the pituitary gland which was negative. MRI of the adrenal gland and pancreas which was negative. Water deprivation test to check for Diabetes Insipidus: this was negative. We did a barium swallow to check for any motility issues or structural issues with your esophagus and this was negative. We are still waiting for results of the urine and plasma metanephrine test. We are waiting for the fasting insulin test to come back. To be honest, I do not believe either of these tests will be positive but it is good to rule out these conditions as they remain possibilities. I do not feel we need to do a pulmonary ct scan as one you have been here for days and have not developed hypoxia. Beta blockers would make it worse and clearly you are tolerating this. For the moment, I believe your diagnosis is either POTS (Postural orthostatic tachycardia syndrome) or Inappropriate Sinus Tachycardia. I will recommend metoprolol 25 mg twice a day and will order salt tablets 1 gram 3 times a day. We will continue the cardura until the metanephrines test comes back. If negative, we will stop the cardura. Please followup with PCP in 1-2 weeks. Recommend followup with Cardiology as well. Pending Studies at Discharge: No Stand-Alone Forms: My [employer], Work/School Release, Smoking Cessation Medications and DC Order Prescriptions: New metoprolol tartrate 25 mg Tablet 25 mg PO BID Qty: 60 0RF doxazosin 1 mg Tablet 1 mg PO HS Qty: 30 0RF sodium chloride 1,000 mg tablet,soluble 1,000 mg PO TIDWMEAL Qty: 90 0RF cholecalciferol (vitamin D3) 25 mcg (1,000 unit) Capsule 100 mcg PO QAM Qty: 30 0RF Discharge Orders: Discharge Order (Routine); Ordered 09/12/24 Ordered By: Alvarez Malave Admission Data Admit Date/Time: 09/07/24 16:25 Attending Provider: Alvarez Malave Admit Provider: Alvarez Malave Primary Care Provider: Jacqueline Ashley Other Interventions: Discharge Summary Assessment (RN) Last Done: 09/12/24 17:16 Hospital Stay Data Consultations 09/07/24 15:04 ED Decision to Admit Stat 09/07/24 16:23 Consult Cardiology Routine Diagnostic Imagining Performed 09/07/24 14:10 CT Abd and Pelvis [CT abd pelvis IV con only] Stat 09/07/24 15:26 US venous doppler LE BI Urgent 09/08/24 13:05 MRI Abdomen [MR abdomen wo/w con] Routine 09/09/24 15:00 MR brain pituitary wo/w con Urgent 09/12/24 08:36 FL barium swallow Stat Pending Results Patient Have Any Pending Studies at Discharge: No Discharge Instructions Given to Patient (Per Discharging Provider) You were seen for an elevated heart rate and Shortness of breath. You had an extensive work up: This included: MRI of the pituitary gland which was negative. MRI of the adrenal gland and pancreas which was negative. Water deprivation test to check for Diabetes Insipidus: this was negative. We did a barium swallow to check for any motility issues or structural issues with your esophagus and this was negative. We are still waiting for results of the urine and plasma metanephrine test. We are waiting for the fasting insulin test to come back. To be honest, I do not believe either of these tests will be positive but it is good to rule out these conditions as they remain possibilities. I do not feel we need to do a pulmonary ct scan as one you have been here for days and have not developed hypoxia. Beta blockers would make it worse and clearly you are tolerating this. For the moment, I believe your diagnosis is either POTS (Postural orthostatic tachycardia syndrome) or Inappropriate Sinus Tachycardia. I will recommend metoprolol 25 mg twice a day and will order salt tablets 1 gram 3 times a day. We will continue the cardura until the metanephrines test comes back. If negative, we will stop the cardura. Please followup with PCP in 1-2 weeks. Recommend followup with Cardiology as well. Total Time Total Time Spent Total Time Spent (In Minutes): 50 Coding Level of Care Code 89032 INP/OBS DISCH >30 MIN Diagnoses Palpitations R00.2
== END 2024-09-12 18:15 | disposition home or self-care (01) | DRG 310 ==
LOC: ED 11:38 → 2E 16:25